=== PATIENT | male | born 1980 | race Caucasian/White ===

== ENCOUNTER 2019-12-23 14:25 | Outpatient (REF) | payer OTHER, SELFPAY ==
[2019-12-23 16:40] LABS: MANUAL DIFF FLAG NO
[2019-12-23 16:46] LABS: Basophils Percent Auto 0.4 % (0-2); Eosinophils Absolute Auto 0.1 X10*3/uL (0.0-0.4); Eosinophils Percent Auto 1.6 % (0-4); Hematocrit 49.6 % (42-52); Hemoglobin 16.7 g/dl (14.0-18.0); Imm Gran Abs Auto 0.02 X10*3/uL (0.00-0.03); Imm Gran Pct Auto 0.3 % (0.0-0.4); Lymphocytes Absolute Auto 2.8 X10*3/uL (1.2-4.9); Lymphocytes Percent Auto 37.2 % (20-40); Mean Corpuscular HGB Conc 33.7 g/dl (31.0-36.0); Mean Corpuscular Hemoglobin 31.2 pg (27.0-33.0); Mean Corpuscular Volume 92.7 fL (80-98); Mean Platelet Volume 10.1 fL (9.4-12.4); Monocytes Absolute Auto 0.7 X10*3/uL (0.1-1.2); Monocytes Percent Auto 8.9 % (2-11); Neutrophils Absolute Auto 3.9 X10*3/uL (2.0-8.3); Neutrophils Percent Auto 51.6 % (45-73); Platelet Count 289 X10*3/uL (160-400); Red Blood Count 5.35 X10*6/uL (4.60-5.80); Red Cell Distribution Width 12.6 % (11.0-16.0); White Blood Count 7.5 X10*3/uL (4.8-10.8)
[2019-12-23 17:15] LABS: Alanine Aminotransferase 33 U/L (0-40); Albumin Level 4.5 g/dL (3.5-5.0); Alkaline Phosphatase 57 U/L (39-117); Anion Gap 13 (12-20); Aspartate Amino Transferase 24 U/L (5-37); Bilirubin Total 2.4 mg/dL (0.0-1.0); Blood Urea Nitrogen 13 mg/dL (9-16); Calcium 9.1 mg/dL (8.4-10.2); Carbon Dioxide 28 mmol/L (22-29); Chloride 100 mmol/L (96-108); Cholesterol 211 mg/dL; Estimated Glomerular Filt Rate > 60; Glucose Fasting 83 mg/dL (60-99); HDL Cholesterol 45 mg/dL; LDL Cholesterol Calculated 149 mg/dl; Potassium 4.4 mmol/l (3.3-5.1); Sodium 137 mmol/L (135-145); Total Protein 7.6 g/dL (6.5-8.0); Triglycerides 85 mg/dL
== END 2019-12-23 14:26 | disposition home or self-care (01) ==
LOC: HO.HMGCLDS 14:25
PROVIDERS: PCP Internal Medicine; Visit Provider Internal Medicine
DX: Z00.00 Encounter for general adult medical examination without abnormal findings (principal); R07.9 Chest pain, unspecified
CPT/HCPCS: 36415; 80053; 80061; 85025

== ENCOUNTER → 2020-02-26 08:20 | Outpatient (BNVA) | payer OTHER, SELFPAY | PROVIDERS: PCP Internal Medicine; Visit Provider Internal Medicine Gastroenterology | DX: Z76.89 Persons encountering health services in other specified circumstances (principal) ==

== ENCOUNTER 2020-03-02 07:55 | Outpatient (REF) | payer OTHER, SELFPAY ==
[2020-03-02 12:14] LABS: Vitamin B12 458 pg/mL (200-900)
[2020-03-03 21:17] LABS: Immunoglobulin A 269 mg/dL (47-310)
[2020-03-04 21:12] LABS: Transglutaminase Ab IgG 2 U/mL; Transglutaminase IgA 1 U/mL
== END 2020-03-02 07:56 | disposition home or self-care (01) ==
LOC: HO.HMGCLDS 07:55
PROVIDERS: PCP Internal Medicine; Visit Provider Internal Medicine Gastroenterology
DX: R14.0 Abdominal distension (gaseous) (principal)
CPT/HCPCS: 36415; 82607; 82746; 82784; 83516

== ENCOUNTER 2020-03-08 10:25 | Outpatient (REF) | payer OTHER, SELFPAY | END 2020-03-08 10:26 | disposition home or self-care (01) | LOC: HO.HMGCLNP 10:25 | PROVIDERS: Visit Provider Internal Medicine Gastroenterology | DX: R14.0 Abdominal distension (gaseous) (principal) | CPT/HCPCS: 87338 ==

== ENCOUNTER → 2020-04-30 07:47 | Outpatient (REF) | payer OTHER, SELFPAY ==
--- NOTE | ~2020-04-30 | NM_ITS ---
EXAMINATION: RADIONUCLIDE SOLID FOOD GASTRIC EMPTYING 4-HOUR STUDY CLINICAL INFORMATION: Abdominal distention (gaseous) COMPARISON: No previous gastric emptying study is available for comparison. TECHNIQUE: A standard meal consisting of 4 oz of Egg Beaters brand tagged with 1 mCi Tc-99m Sulfur Colloid, 8 oz water and 2 slices of toast with jelly was administered orally to the patient. Images were obtained using a dual head gamma camera in the anterior and posterior projections over of the stomach immediately post ingestion and at hourly intervals up to 3 hours post ingestion. Images were not obtained at 4 hours due to the minimal retention at 3 hours. The anterior and posterior counts at each time interval were averaged using the geometric mean and expressed as percentage of the immediate post ingestion counts. FINDINGS: There is good visualization of activity in the stomach immediately post ingestion. As the study progresses, there is good clearance of activity from the stomach and visualization of progressively increasing small bowel activity. By the end of the study, there is almost no retention noted in the stomach. Retention in the stomach at each time interval was: 1 hour 70% (normal 37%-90%) 2 hours 7% (normal 30%-60%) 3 hours 2% 4 hours (Not Obtained) (normal 0%-10%) NM/NM gastric emptying study IMPRESSION: Normal solid food gastric emptying study.
== END ==
LOC: HO.NUCMED 07:47
PROVIDERS: Visit Provider Internal Medicine Gastroenterology
DX: R14.0 Abdominal distension (gaseous) (principal)
CPT/HCPCS: 78264; A9541

== ENCOUNTER → 2020-06-04 11:24 | Outpatient (BNVA) | payer OTHER, SELFPAY | PROVIDERS: Visit Provider Internal Medicine Gastroenterology ==

== ENCOUNTER 2021-01-13 13:05 | Outpatient (REF) | payer OTHER, SELFPAY ==
--- NOTE | ~2021-01-13 | XR_ITS ---
EXAMINATION: XR SHOULDER, LEFT CLINICAL INFORMATION: Left shoulder pain. COMPARISON: None TECHNIQUE: AP external rotation, Grashey, scapular Y, and axillary views of the left shoulder. FINDINGS: The bones and soft tissues are normal. No fracture. Glenohumeral and acromioclavicular alignment is anatomic with normal joint space. No abnormal soft tissue calcifications. XR/XR shoulder LT min 2V IMPRESSION: Normal left shoulder.
== END 2021-01-13 13:06 | disposition home or self-care (01) ==
LOC: HO.HMGCX 13:05
PROVIDERS: PCP Internal Medicine; Visit Provider Internal Medicine
DX: M25.512 Pain in left shoulder (principal); R42 Dizziness and giddiness
CPT/HCPCS: 73030

== ENCOUNTER 2021-03-09 07:59 | Outpatient (REF) | payer OTHER, SELFPAY ==
[2021-03-09 11:52] LABS: MANUAL DIFF FLAG NO
[2021-03-09 11:57] LABS: Basophils Percent Auto 0.2 % (0-2); Eosinophils Absolute Auto 0.2 X10*3/uL (0.0-0.4); Eosinophils Percent Auto 1.8 % (0-4); Hematocrit 49.3 % (42.0-52.0); Hemoglobin 16.9 g/dl (14.0-18.0); Imm Gran Abs Auto 0.02 X10*3/uL (0.00-0.03); Imm Gran Pct Auto 0.2 % (0.0-0.4); Lymphocytes Absolute Auto 2.6 X10*3/uL (1.2-4.9); Lymphocytes Percent Auto 30.6 % (20-40); Mean Corpuscular HGB Conc 34.3 g/dl (31.0-36.0); Mean Corpuscular Hemoglobin 31.7 pg (27.0-33.0); Mean Corpuscular Volume 92.5 fL (80.0-98.0); Mean Platelet Volume 10.1 fL (9.4-12.4); Monocytes Absolute Auto 0.7 X10*3/uL (0.1-1.2); Monocytes Percent Auto 8.2 % (2-11); Neutrophils Absolute Auto 4.9 x10*3/uL (2.0-8.3); Platelet Count 313 X10*3/uL (160-400); Red Blood Count 5.33 X10*6/uL (4.60-5.80); Red Cell Distribution Width 12.2 % (11.0-16.0); White Blood Count 8.4 X10*3/uL (4.8-10.8)
[2021-03-09 12:22] LABS: Alanine Aminotransferase 46 U/L (0-40); Albumin Level 4.5 g/dL (3.5-5.0); Alkaline Phosphatase 59 U/L (39-117); Anion Gap 16 (12-20); Aspartate Amino Transferase 25 U/L (5-37); Bilirubin Total 2.3 mg/dL (0.0-1.0); Blood Urea Nitrogen 21 mg/dL (9-16); Calcium 9.7 mg/dL (8.4-10.2); Carbon Dioxide 26 mmol/L (22-29); Chloride 103 mmol/L (96-108); Cholesterol 220 mg/dL; Estimated Glomerular Filt Rate > 60; Glucose Fasting 71 mg/dL (60-99); HDL Cholesterol 41 mg/dL; LDL Cholesterol Calculated 161 mg/dl; Potassium 4.6 mmol/L (3.3-5.1); Sodium 140 mmol/L (135-145); Total Protein 7.6 g/dL (6.5-8.0); Triglycerides 90 mg/dL
== END 2021-03-09 08:00 | disposition home or self-care (01) ==
LOC: HO.HMGCLDS 07:59
PROVIDERS: PCP Internal Medicine; Visit Provider Internal Medicine
DX: Z00.00 Encounter for general adult medical examination without abnormal findings (principal)
CPT/HCPCS: 36415; 80053; 80061; 85025

== ENCOUNTER 2021-06-03 07:59 | Outpatient (REF) | payer OTHER, SELFPAY ==
[2021-06-03 12:03] LABS: Cholesterol 191 mg/dL; HDL Cholesterol 43 mg/dL; LDL Cholesterol Calculated 139 mg/dl; Triglycerides 49 mg/dL
== END 2021-06-03 08:00 | disposition home or self-care (01) ==
LOC: HO.HMGCLDS 07:59
PROVIDERS: PCP Internal Medicine; Visit Provider Internal Medicine
DX: Z00.00 Encounter for general adult medical examination without abnormal findings (principal); E78.5 Hyperlipidemia, unspecified
CPT/HCPCS: 36415; 80061

== ENCOUNTER 2021-06-06 15:51 | Outpatient (REF) | payer OTHER, SELFPAY ==
--- NOTE | 2021-06-06 17:38 | PFT_ITS ---
FLOWS: FEV1 84% of predicted at 3.35 L. FVC 89% of predicted at 4.45 L. FEV1 to FVC ratio of 0.75. No bronchodilator response. LUNG VOLUMES: Total lung capacity 92% of predicted at 6.01 L. Residual volume 99% of predicted at 1.69 L. Slow vital capacity 89% of predicted at 4.32 L. Expiratory reserve volume 59% of predicted at 0.90 L. Diffusion capacity is normal. IMPRESSION: No obstructive or restrictive ventilatory defect. No bronchodilator response. Essentially normal pulmonary function test. Jose Maxwell MD AP/MODL / [id number]
== END 2021-06-06 15:52 | disposition home or self-care (01) ==
LOC: HO.RESP 15:51
PROVIDERS: PCP Internal Medicine; Visit Provider Internal Medicine
DX: R06.02 Shortness of breath (principal)
CPT/HCPCS: 94060; 94727; 94729

== ENCOUNTER 2021-08-10 08:24 | Outpatient (REF) | payer OTHER, SELFPAY ==
--- NOTE | ~2021-08-10 | XR_ITS ---
EXAMINATION: XR RIBS, LEFT CLINICAL INFORMATION: Front wall of the thorax contusion. COMPARISON: 05/08/2019 chest radiographs. TECHNIQUE: 3 views of the left ribs were obtained along with a PA view of the chest. A skin marker was placed overlying the left lateral ribs. FINDINGS: Lungs are clear. No consolidation, pneumothorax, or pleural effusion. The cardiomediastinal silhouette and pulmonary vasculature are normal. Osseous structures are unremarkable. Ribs are intact. No fractures are identified. XR/XR ribs LT min 3V w CXR1V IMPRESSION: Unremarkable examination.
== END 2021-08-10 08:25 | disposition home or self-care (01) ==
LOC: HO.HMGCX 08:24
PROVIDERS: PCP Internal Medicine; Visit Provider Internal Medicine
DX: S20.219A Contusion of unspecified front wall of thorax, initial encounter (principal)
CPT/HCPCS: 71101

== ENCOUNTER 2021-09-19 15:25 | Outpatient (REF) | payer OTHER, SELFPAY ==
--- NOTE | ~2021-09-19 | US_ITS ---
EXAMINATION: US CHEST CLINICAL INFORMATION: Palpable lump/fullness in the rib. COMPARISON: Chest x-ray 08/10/2021. TECHNIQUE: Limited imaging to the left lateral chest below the breast was performed. FINDINGS: Limited imaging to the left anterior chest wall in the palpable area or prominence reveals no soft tissue mass or fluid collection or mass effect. However, there is moderate echogenic prominent area, likely bony prominence contiguous to the rib. This is more apparent when compared to the right side. Chest x-ray and the left rib series reveal a lytic lesion seventh anterior rib. US/US chest IMPRESSION: Echogenic area in the left anterior chest wall underneath the breast corresponds to a bony prominence. On chest x-ray from 08/10/2021, there appears to be a lytic lesion arising from left anterior seventh rib question intraosseous cyst. Recommend correlation with CT chest.
== END 2021-09-19 15:26 | disposition home or self-care (01) ==
LOC: HO.HMGCX 15:25
PROVIDERS: Visit Provider Internal Medicine
DX: R22.2 Localized swelling, mass and lump, trunk (principal)
CPT/HCPCS: 76604

== ENCOUNTER 2021-10-12 09:03 | Outpatient (REF) | payer OTHER, SELFPAY ==
--- NOTE | ~2021-10-12 | CT_ITS ---
EXAMINATION: CT CHEST WITHOUT CONTRAST CLINICAL INFORMATION: Acquired deformity of chest. COMPARISON: Chest x-ray 08/10/2021. TECHNIQUE: Multidetector volumetric CT imaging of the chest was done. Axial MIP volume rendering provided. Sagittal and coronal reformatted images were obtained. This CT examination was performed using dose optimization techniques as appropriate, variously including the following: *Automated exposure control *Adjustment of mA and/or kV according to patient size (this includes techniques or standardized protocols for targeted exams where dose is matched to indication/reason for exam; i.e. 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 LUNGS: The lungs are well expanded and clear of acute pneumonic consolidation. No pulmonary nodule, mass or ground-glass density seen. MEDIASTINUM: The thyroid lobes are normal and symmetrical. The central trachea and the bronchi are widely patent. The heart size and great vessels are normal caliber. There are no abnormal mediastinal lymph nodes or masses. No pericardial effusion. PLEURA: There are small shotty lymph nodes in bilateral axilla. The chest wall is unremarkable. AXILLA: No lymphadenopathy. UPPER ABDOMEN: Visualized liver, spleen, pancreas and bilateral adrenal glands unremarkable. OSSEOUS STRUCTURES: No aggressive lytic or sclerotic process seen. CT/CT chest wo con IMPRESSION: No acute cardiopulmonary process seen. Fleischner guidelines were followed.
== END 2021-10-12 09:04 | disposition home or self-care (01) ==
LOC: HO.CT 09:03
PROVIDERS: PCP Internal Medicine; Visit Provider Internal Medicine
DX: M95.4 Acquired deformity of chest and rib (principal)
CPT/HCPCS: 71250

== ENCOUNTER 2021-10-14 07:32 | Outpatient (REF) | payer OTHER, SELFPAY ==
[2021-10-14 11:28] LABS: MANUAL DIFF FLAG NO
[2021-10-14 11:38] LABS: Basophils Percent Auto 0.6 % (0-2); Eosinophils Absolute Auto 0.3 X10*3/uL (0.0-0.4); Eosinophils Percent Auto 4.5 % (0-4); Hematocrit 47.5 % (42.0-52.0); Hemoglobin 16.2 g/dl (14.0-18.0); Imm Gran Abs Auto 0.02 X10*3/uL (0.00-0.03); Imm Gran Pct Auto 0.3 % (0.0-0.4); Lymphocytes Absolute Auto 2.6 X10*3/uL (1.2-4.9); Mean Corpuscular HGB Conc 34.1 g/dl (31.0-36.0); Mean Corpuscular Hemoglobin 31.3 pg (27.0-33.0); Mean Corpuscular Volume 91.9 fL (80.0-98.0); Mean Platelet Volume 10.3 fL (9.4-12.4); Monocytes Absolute Auto 0.6 X10*3/uL (0.1-1.2); Monocytes Percent Auto 9.2 % (2-11); Neutrophils Absolute Auto 2.9 x10*3/uL (2.0-8.3); Neutrophils Percent Auto 45.4 % (45-73); Platelet Count 281 X10*3/uL (160-400); Red Blood Count 5.17 X10*6/uL (4.60-5.80); Red Cell Distribution Width 12.8 % (11.0-16.0); White Blood Count 6.4 X10*3/uL (4.8-10.8)
[2021-10-14 11:47] LABS: Alanine Aminotransferase 38 U/L (0-40); Albumin Level 4.4 g/dL (3.5-5.0); Alkaline Phosphatase 64 U/L (39-117); Anion Gap 15 (12-20); Aspartate Amino Transferase 25 U/L (5-37); Bilirubin Total 1.2 mg/dL (0.0-1.0); Blood Urea Nitrogen 18 mg/dL (9-16); Calcium 9.5 mg/dL (8.4-10.2); Carbon Dioxide 27 mmol/L (22-29); Chloride 103 mmol/L (96-108); Cholesterol 214 mg/dL; Estimated Glomerular Filt Rate > 60; Glucose Fasting 93 mg/dL (60-99); HDL Cholesterol 51 mg/dL; Iron 87 mcg/dL (45-160); LDL Cholesterol Calculated 151 mg/dl; Percent Iron Saturation 22 % (15-50); Potassium 4.6 mmol/L (3.3-5.1); Sodium 140 mmol/L (135-145); Total Iron Binding Capacity 387 mcg/dL (228-428); Total Protein 7.4 g/dL (6.5-8.0); Triglycerides 61 mg/dL; Unsaturated Iron Binding 300 ug/dL
[2021-10-20 21:02] LABS: Testosterone, Free 69.8 pg/mL (35.0-155.0); Testosterone, Total 316 ng/dL (250-1100)
[2021-10-22 20:07] LABS: Cortisol, Free 0.24 mcg/dL
== END 2021-10-14 07:33 | disposition home or self-care (01) ==
LOC: HO.HMGCLDS 07:32
PROVIDERS: PCP Internal Medicine; Visit Provider Internal Medicine
DX: Z00.00 Encounter for general adult medical examination without abnormal findings (principal); R53.83 Other fatigue; J45.909 Unspecified asthma, uncomplicated
CPT/HCPCS: 36415; 80053; 80061; 82530; 83540; 84402; 84403; 84443; 85025

== ENCOUNTER → 2021-10-28 10:43 | Outpatient (BNVA) | payer OTHER, SELFPAY | PROVIDERS: PCP Internal Medicine; Visit Provider Surgery | DX: M94.0 Chondrocostal junction syndrome [Tietze] (principal) | CPT/HCPCS: 99202 ==

== ENCOUNTER 2022-03-16 07:35 | Outpatient (REF) | payer OTHER, SELFPAY ==
[2022-03-16 11:17] LABS: MANUAL DIFF FLAG NO
[2022-03-16 11:18] LABS: Appearance Urine Turbid; Color Urine Dark Yellow; Glucose Urine UA Negative (Negative); Leukocyte Esterase Urine Negative (Negative); Nitrite Urine Negative (Negative); PH 5.5 (5.0-9.0); Specific Gravity - Urine >= 1.030 (1.005-1.025); Urine Blood Negative (Negative); Urine Ketones 15 mg/dL (Negative); Urine Protein Negative (Neg-Trace)
[2022-03-16 11:21] LABS: Bacteria Urine None Seen (None Seen); Hyaline Casts Urine 0-2 /LPF (0-2); RBC Urine 0-2 /HPF (0-2); Squamous Epithelial Cell Urine 0-2 /HPF (0-2); WBC Urine 0-5 /HPF (0-5)
[2022-03-16 11:28] LABS: Basophils Percent Auto 0.6 % (0-2); Eosinophils Absolute Auto 0.2 X10*3/uL (0.0-0.4); Eosinophils Percent Auto 3.2 % (0-4); Hematocrit 53.1 % (42.0-52.0); Imm Gran Abs Auto 0.01 X10*3/uL (0.00-0.03); Imm Gran Pct Auto 0.2 % (0.0-0.4); Lymphocytes Absolute Auto 2.1 X10*3/uL (1.2-4.9); Lymphocytes Percent Auto 39.8 % (20-40); Mean Corpuscular HGB Conc 33.9 g/dl (31.0-36.0); Mean Corpuscular Hemoglobin 30.7 pg (27.0-33.0); Mean Corpuscular Volume 90.6 fL (80.0-98.0); Mean Platelet Volume 10.2 fL (9.4-12.4); Monocytes Absolute Auto 0.6 X10*3/uL (0.1-1.2); Monocytes Percent Auto 11.6 % (2-11); Neutrophils Absolute Auto 2.3 x10*3/uL (2.0-8.3); Neutrophils Percent Auto 44.6 % (45-73); Platelet Count 260 X10*3/uL (160-400); Red Blood Count 5.86 X10*6/uL (4.60-5.80); Red Cell Distribution Width 13.6 % (11.0-16.0); White Blood Count 5.3 X10*3/uL (4.8-10.8)
[2022-03-16 11:49] LABS: Alanine Aminotransferase 25 U/L (0-40); Albumin Level 4.3 g/dL (3.5-5.0); Alkaline Phosphatase 54 U/L (39-117); Anion Gap 9 (12-20); Aspartate Amino Transferase 23 U/L (5-37); Bilirubin Total 1.5 mg/dL (0.0-1.0); Blood Urea Nitrogen 18 mg/dL (9-16); Calcium 9.4 mg/dL (8.4-10.2); Carbon Dioxide 29 mmol/L (22-29); Chloride 104 mmol/L (96-108); Cholesterol 151 mg/dL; Estimated Glomerular Filt Rate > 60; Glucose Fasting 81 mg/dL (60-99); HDL Cholesterol 32 mg/dL; LDL Cholesterol Calculated 108 mg/dl; Potassium 4.2 mmol/L (3.3-5.1); Sodium 138 mmol/L (135-145); Total Protein 7.2 g/dL (6.5-8.0); Triglycerides 56 mg/dL
[2022-03-16 12:05] LABS: TSH reflex Free T4 1.11 uIU/mL (0.32-4.0)
== END 2022-03-16 07:36 | disposition home or self-care (01) ==
LOC: HO.HMGCLDS 07:35
PROVIDERS: PCP Internal Medicine; Visit Provider Internal Medicine
DX: Z00.00 Encounter for general adult medical examination without abnormal findings (principal); E78.5 Hyperlipidemia, unspecified
CPT/HCPCS: 36415; 80053; 80061; 81001; 84443; 85025

== ENCOUNTER 2022-06-26 15:52 | Outpatient (REF) | payer OTHER, SELFPAY ==
--- NOTE | ~2022-06-26 | XR_ITS ---
EXAMINATION: XR FOOT, RIGHT CLINICAL INFORMATION: Pain. COMPARISON: None available. TECHNIQUE: AP, lateral, and oblique views of the right foot. FINDINGS: There is no visible acute fracture, dislocation or subluxation. The ankle mortise and subtalar joints are normal. There is a small calcaneal heel enthesophyte. No visible acute fracture, dislocation or subluxation seen. The soft tissues are normal. XR/XR foot RT min 3V IMPRESSION: Small calcaneal heel enthesophyte. No visible acute fracture, dislocation or subluxation seen.
== END 2022-06-26 15:53 | disposition home or self-care (01) ==
LOC: HO.HMGCX 15:52
PROVIDERS: PCP Internal Medicine; Visit Provider Nurse Practitioner Family
DX: M25.471 Effusion, right ankle (principal)
CPT/HCPCS: 73630

== ENCOUNTER 2022-06-27 06:04 | Outpatient (REF) | payer OTHER, SELFPAY ==
[2022-06-27 11:14] LABS: MANUAL DIFF FLAG NO
[2022-06-27 11:35] LABS: Basophils Absolute Auto 0.1 X10*3/uL (0.0-0.2); Basophils Percent Auto 0.8 % (0-2); Eosinophils Absolute Auto 0.2 X10*3/uL (0.0-0.4); Eosinophils Percent Auto 2.6 % (0-4); Hemoglobin 18.5 g/dl (14.0-18.0); Imm Gran Abs Auto 0.02 X10*3/uL (0.00-0.03); Imm Gran Pct Auto 0.3 % (0.0-0.4); Lymphocytes Absolute Auto 2.7 X10*3/uL (1.2-4.9); Lymphocytes Percent Auto 34.4 % (20-40); Mean Corpuscular HGB Conc 33.2 g/dl (31.0-36.0); Mean Corpuscular Hemoglobin 30.9 pg (27.0-33.0); Mean Corpuscular Volume 93.3 fL (80.0-98.0); Monocytes Absolute Auto 0.7 X10*3/uL (0.1-1.2); Monocytes Percent Auto 8.7 % (2-11); Neutrophils Absolute Auto 4.2 x10*3/uL (2.0-8.3); Neutrophils Percent Auto 53.2 % (45-73); Platelet Count 249 X10*3/uL (160-400); Red Blood Count 5.98 X10*6/uL (4.60-5.80); Red Cell Distribution Width 13.2 % (11.0-16.0); White Blood Count 7.8 X10*3/uL (4.8-10.8)
[2022-06-27 11:36] LABS: Hematocrit 55.8 % (42.0-52.0)
[2022-06-27 12:11] LABS: Anion Gap 9 (12-20); Blood Urea Nitrogen 14 mg/dL (9-16); Calcium 9.3 mg/dL (8.4-10.2); Carbon Dioxide 33 mmol/L (22-29); Chloride 104 mmol/L (96-108); Estimated Glomerular Filt Rate > 60; Glucose Random 92 mg/dL (60-115); Potassium 4.4 mmol/L (3.3-5.1); Sodium 142 mmol/L (135-145); Uric Acid 4.8 mg/dL (3.4-7.0)
== END 2022-06-27 06:05 | disposition home or self-care (01) ==
LOC: HO.HMGCLDS 06:04
PROVIDERS: PCP Internal Medicine; Visit Provider Nurse Practitioner Family
DX: M25.476 Effusion, unspecified foot (principal)
CPT/HCPCS: 36415; 80048; 84550; 85025

== ENCOUNTER 2022-07-17 08:21 | Outpatient (REF) | payer OTHER, SELFPAY ==
[2022-07-17 11:30] LABS: MANUAL DIFF FLAG NO
[2022-07-17 11:50] LABS: Basophils Percent Auto 0.8 % (0-2); Eosinophils Absolute Auto 0.2 X10*3/uL (0.0-0.4); Eosinophils Percent Auto 3.2 % (0-4); Hematocrit 48.2 % (42.0-52.0); Hemoglobin 16.7 g/dl (14.0-18.0); Imm Gran Abs Auto 0.01 X10*3/uL (0.00-0.03); Imm Gran Pct Auto 0.2 % (0.0-0.4); Lymphocytes Absolute Auto 2.1 X10*3/uL (1.2-4.9); Lymphocytes Percent Auto 38.9 % (20-40); Mean Corpuscular HGB Conc 34.6 g/dl (31.0-36.0); Mean Corpuscular Hemoglobin 31.6 pg (27.0-33.0); Mean Corpuscular Volume 91.3 fL (80.0-98.0); Mean Platelet Volume 9.8 fL (9.4-12.4); Monocytes Absolute Auto 0.5 X10*3/uL (0.1-1.2); Monocytes Percent Auto 8.5 % (2-11); Neutrophils Absolute Auto 2.6 x10*3/uL (2.0-8.3); Neutrophils Percent Auto 48.4 % (45-73); Platelet Count 258 X10*3/uL (160-400); Red Blood Count 5.28 X10*6/uL (4.60-5.80); Red Cell Distribution Width 12.8 % (11.0-16.0); White Blood Count 5.3 X10*3/uL (4.8-10.8)
[2022-07-17 12:09] LABS: Iron 116 mcg/dL (45-160); Percent Iron Saturation 34 % (15-50); Total Iron Binding Capacity 344 mcg/dL (228-428); Unsaturated Iron Binding 228 ug/dL
[2022-07-23 14:12] LABS: Testosterone, Free 71.8 pg/mL (35.0-155.0); Testosterone, Total 275 ng/dL (250-1100)
[2022-07-28 23:50] LABS: Cortisol, Free 0.24 mcg/dL
== END 2022-07-17 08:22 | disposition home or self-care (01) ==
LOC: HO.HMGCLDS 08:21
PROVIDERS: PCP Internal Medicine; Visit Provider Internal Medicine
DX: D75.1 Secondary polycythemia (principal)
CPT/HCPCS: 36415; 81219; 81270; 81279; 81339; 82530; 83540; 84402; 84403; 85025

== ENCOUNTER 2022-09-18 08:21 | Outpatient (AMB) | payer OTHER, SELFPAY ==
--- NOTE | 2022-09-18 08:22 | A.OFFPC_ITS ---
Vital Signs 09/18/22 08:23 Height 5 ft 8 in Weight 194 lb BMI 29.5 BP 120/74 Blood Pressure Location Lt brachial Position Sitting Pulse 85 Pulse Source Pulse Oximeter Pulse Oximetry (%) 95 Oxygen Delivery Method Room Air Intake Visit Reasons: 6 month follow up Intake Note: Pt is here today for his 6 months f/u Allergies No Known Allergies Allergy (Verified 06/26/22 15:19) Medication List - Last Reconciled 09/18/22 by Merlyn Beauchamp MD multivitamin 1 tab PO DAILY Tobacco use date assessed: 09/18/22 Dental Screening Dental Screen Date: 09/18/22 Did you have a dental visit in the last 12 months?: Yes Did you have a dental problem in the last 6 months where you did not have access to dental care?: No Was dental information given to patient?: Patient has dentist HPI 6 month follow up HPI Details Pt presents for f/u paroxysmal A fib last episode in 07/18. Pt follows up with Cardiology at [facility] and will have catheter ablation scheduled. His daughter was diagnosed with acute leukemia and is undergoing the treatment [facility] Medical History Annual physical exam Anxiety Asthma Chest pain Shoulder pain, left Vertigo Surgical History No significant past surgical history Family History Father Hx of type 2 diabetes mellitus Mother Hx of breast cancer Hx of heat stroke Sister Multiple sclerosis Other Mental health disorder Substance use disorder Social History Household Members: Spouse and Children Housing: House Alcohol intake: never Patient Tobacco Use Status: Never used Tobacco e-Cigarette/Vaping Use: Never Used Second Hand Smoke Exposure: No Current occupational status: employed Cognitive needs: No Hearing needs: No Vision needs: No Questionnaire Thrive Questionnaire Date Thrive assessed: 03/21/22 FLACA-7 AMB Questionnaire FLACA-7 Date FLACA - 7 assessed: 03/21/22 Source: Developed by Drs. Bobby Flores, Tomeka Joshua, Spike Mason and colleagues, with an educational zach from [employer]. Review of Systems Const All systems reviewed & are unremarkable except as noted in HPI and below Reports no additional complaints Eyes Reports no additional complaints ENT Reports no additional complaints Card Reports no additional complaints Resp Reports no additional complaints GI Reports no additional complaints Reports no additional complaints Physical exam (Primary Care) Vital Signs: Last Vital Signs Pulse 85 09/18/22 08:23 BP 120/74 09/18/22 08:23 Pulse Ox 95 09/18/22 08:23 Oxygen Delivery Method Room Air 09/18/22 08:23 BMI result Body Mass Index 29.5 Tobacco/Smoking Status: Tobacco use Status Tobacco use date assessed 09/18/22 09/18/22 08:28 Patient Tobacco Use Status Never used Tobacco 09/18/22 08:28 e-Cigarette/Vaping Use Never Used 09/18/22 08:28 Thrive Assessment: Date of Thrive Assessment Date Thrive assessed 03/21/22 09/18/22 08:28 Const General: no acute distress HENMT Ears: hearing grossly normal bilaterally Throat: Yes posterior oropharynx normal Resp Effort & Inspection: normal respiratory effort Auscultation: clear to auscultation bilaterally Cardio Rhythm: regular rhythm Heart sounds: S1 normal heart sound present and S2 normal heart sound present Assessment and Plan Assessment & Plan (1) Hyperlipemia: Code(s): E78.5 - Hyperlipidemia, unspecified Plan: Continue low-cholesterol diet check lipid profile today (2) Annual physical exam: Code(s): Z00.00 - Encounter for general adult medical examination without abnormal findings Plan: Well-balanced diet regular exercise discussed with the patient. he will return for physical in 6 months Orders: Orders Testosterone, Free/Total Today E78.5 - Hyperlipidemia, unspecified, Z00.00 - Encounter for general adult medical examination without abnormal findings Comprehensive Met. Panel Today E78.5 - Hyperlipidemia, unspecified, Z00.00 - Encounter for general adult medical examination without abnormal findings Lipid Panel Today E78.5 - Hyperlipidemia, unspecified, Z00.00 - Encounter for general adult medical examination without abnormal findings Complete Blood Count Auto Diff Today E78.5 - Hyperlipidemia, unspecified, Z00.00 - Encounter for general adult medical examination without abnormal findings Coding Level of Care Code Est Pt Level 3 (27699) Diagnoses Hyperlipemia E78.5 Annual physical exam Z00.00
[2022-09-18 08:23] VITALS: BP 120/74; PULSE 85; O2SAT 95; BMI 29.5
== END 2022-09-18 08:56 | disposition home or self-care (01) ==
PROVIDERS: PCP Internal Medicine; Visit Provider Internal Medicine
DX: E78.5 Hyperlipidemia, unspecified (principal); Z00.00 Encounter for general adult medical examination without abnormal findings
CPT/HCPCS: 99213

== ENCOUNTER 2022-09-18 08:53 | Outpatient (REF) | payer OTHER, SELFPAY ==
[2022-09-18 11:32] LABS: MANUAL DIFF FLAG NO
[2022-09-18 11:42] LABS: Basophils Absolute Auto 0.1 X10*3/uL (0.0-0.2); Basophils Percent Auto 0.7 % (0-2); Eosinophils Absolute Auto 0.5 X10*3/uL (0.0-0.4); Hematocrit 53.8 % (42.0-52.0); Imm Gran Abs Auto 0.01 X10*3/uL (0.00-0.03); Imm Gran Pct Auto 0.1 % (0.0-0.4); Lymphocytes Absolute Auto 2.3 X10*3/uL (1.2-4.9); Lymphocytes Percent Auto 31.6 % (20-40); Mean Corpuscular HGB Conc 33.5 g/dl (31.0-36.0); Mean Corpuscular Hemoglobin 31.3 pg (27.0-33.0); Mean Corpuscular Volume 93.6 fL (80.0-98.0); Monocytes Absolute Auto 0.5 X10*3/uL (0.1-1.2); Monocytes Percent Auto 7.2 % (2-11); Neutrophils Percent Auto 53.4 % (45-73); Platelet Count 253 X10*3/uL (160-400); Red Blood Count 5.75 X10*6/uL (4.60-5.80); Red Cell Distribution Width 13.5 % (11.0-16.0); White Blood Count 7.4 X10*3/uL (4.8-10.8)
[2022-09-18 12:47] LABS: Alanine Aminotransferase 21 U/L (0-40); Albumin Level 4.2 g/dL (3.5-5.0); Alkaline Phosphatase 64 U/L (39-117); Anion Gap 11 (12-20); Aspartate Amino Transferase 19 U/L (5-37); Bilirubin Total 1.1 mg/dL (0.0-1.0); Blood Urea Nitrogen 16 mg/dL (9-16); Calcium 9.6 mg/dL (8.4-10.2); Carbon Dioxide 29 mmol/L (22-29); Chloride 103 mmol/L (96-108); Cholesterol 172 mg/dL; Estimated Glomerular Filt Rate > 60; Glucose Random 90 mg/dL (60-115); HDL Cholesterol 41 mg/dL; LDL Cholesterol Calculated 123 mg/dl; Potassium 4.4 mmol/L (3.3-5.1); Sodium 139 mmol/L (135-145); Total Protein 7.5 g/dL (6.5-8.0); Triglycerides 42 mg/dL
[2022-09-22 16:33] LABS: Testosterone, Free 368.2 pg/mL (35.0-155.0); Testosterone, Total 1169 ng/dL (250-1100)
== END 2022-09-18 08:54 | disposition home or self-care (01) ==
LOC: HO.HMGCLDS 08:53
PROVIDERS: PCP Internal Medicine; Visit Provider Internal Medicine
DX: Z00.00 Encounter for general adult medical examination without abnormal findings (principal); E78.5 Hyperlipidemia, unspecified
CPT/HCPCS: 36415; 80053; 80061; 84402; 84403; 85025

== ENCOUNTER 2023-03-09 11:42 | Outpatient (AMB) | payer OTHER, SELFPAY ==
--- NOTE | 2023-03-09 11:48 | A.OFFPC_ITS ---
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 Accompanied by: Self / Same As Patient Allergies No Known Allergies Allergy (Verified 03/09/23 12:01) Medication List - Last Reconciled 03/09/23 by Merlyn Beauchamp MD flecainide 100 mg PO DAILY metoprolol tartrate 25 mg PO BID multivitamin 1 tab PO DAILY Tobacco use date assessed: 03/09/23 Dental Screening Dental Screen Date: 03/09/23 Did you have a dental visit in the last 12 months?: Yes Did you have a dental problem in the last 6 months where you did not have access to dental care?: No Was dental information given to patient?: Patient has dentist HPI ER visit follow up HPI Details Pt presents for f/u of ER visit for positional vertigo with negative neuro (CTA brain and neck) and cardiac alcantar. Patient is to report symptoms of vertigo and is interested in trying vestibular therapy. 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 Patient has been on testosterone replacement prescribed by a company in [place]. [facility] Medical History Asthma Anxiety Vertigo Shoulder pain, left Chest pain Annual physical exam Surgical History No significant past surgical history Family History Father Hx of type 2 diabetes mellitus Mother Hx of breast cancer Hx of heat stroke Sister Multiple sclerosis Other Mental health disorder Substance use disorder Social History Household Members: Spouse and Children Housing: House Alcohol intake: never Patient Tobacco Use Status: Never used Tobacco e-Cigarette/Vaping Use: Never Used Second Hand Smoke Exposure: No Current occupational status: employed Cognitive needs: No Hearing needs: No Vision needs: No Questionnaire Thrive Questionnaire Date Thrive assessed: 03/21/22 FLACA-7 AMB Questionnaire FLACA-7 Date FLACA - 7 assessed: 03/21/22 Source: Developed by Drs. Bobby Flores, Tomeka Joshua, Spike Mason and colleagues, with an educational zach from [employer]. Review of Systems Const All systems reviewed & are unremarkable except as noted in HPI and below Reports no additional complaints Eyes Reports no additional complaints ENT Reports no additional complaints Card Reports no additional complaints Resp Reports no additional complaints GI Reports no additional complaints Physical exam (Primary Care) Vital Signs: Last Vital Signs Pulse 74 03/09/23 12:00 BP 122/74 03/09/23 12:00 Pulse Ox 96 03/09/23 12:00 BMI result Body Mass Index 31.3 Tobacco/Smoking Status: Tobacco use Status Tobacco use date assessed 03/09/23 03/09/23 12:03 Patient Tobacco Use Status Never used Tobacco 03/09/23 11:48 e-Cigarette/Vaping Use Never Used 03/09/23 11:48 Thrive Assessment: Date of Thrive Assessment Date Thrive assessed 03/21/22 03/09/23 11:48 Const General: no acute distress HENMT Head: Yes normal to inspection Ears: hearing grossly normal bilaterally Face and sinus: Yes normal facial exam Mouth: Normal oral and palatal mucosa present Throat: Yes posterior oropharynx normal Neck Neck: Yes no lymphadenopathy and Yes supple Resp Effort & Inspection: normal respiratory effort Auscultation: clear to auscultation bilaterally Cardio Rhythm: regular rhythm Heart sounds: S1 normal heart sound present and S2 normal heart sound present GI Inspection: Yes normal to inspection Palpation (GI): Soft to palpation Percussion: Yes normal to percussion Assessment and Plan Assessment & Plan (1) Vertigo: Code(s): R42 - Dizziness and giddiness Plan: Referred vestibular therapy (2) High serum testosterone: Comment: f/u by [facility] in [place] Code(s): R79.89 - Other specified abnormal findings of blood chemistry Plan: Patient was advised to decrease the dose of his testosterone replace because of high free testosterone level and a patient at risk for OH due to history of paroxysmal AFib and hyperlipidemia. He follows up for physical in 3 weeks and will obtain a fasting blood work (3) Polycythemia: Comment: Due to testosterone replacement Code(s): D75.1 - Secondary polycythemia (4) Hyperlipemia: Code(s): E78.5 - Hyperlipidemia, unspecified Plan: Continue low-cholesterol diet Orders: Orders Lipid Panel Today D75.1 - Secondary polycythemia, E78.5 - Hyperlipidemia, unspecified, R79.89 - Other specified abnormal findings of blood chemistry Testosterone, Free/Total Today D75.1 - Secondary polycythemia, E78.5 - Hyperlipidemia, unspecified, R79.89 - Other specified abnormal findings of blood chemistry PT Evaluation and Treatment Today R42 - Dizziness and giddiness Comprehensive Zachary. Panel Fast Today D75.1 - Secondary polycythemia, E78.5 - Hyperlipidemia, unspecified, R79.89 - Other specified abnormal findings of blood chemistry Complete Blood Count Auto Diff Today D75.1 - Secondary polycythemia, E78.5 - Hyperlipidemia, unspecified, R79.89 - Other specified abnormal findings of blood chemistry TSH reflex Free T4 Today D75.1 - Secondary polycythemia Medications: New meclizine 25 mg PO BID PRN 20 tabs 0RF dizziness Coding Level of Care Code Est Pt Level 4 (78244) Diagnoses Vertigo R42 High serum testosterone R79.89 Polycythemia D75.1 Hyperlipemia E78.5
[2023-03-09 12:00] VITALS: BP 122/74; PULSE 74; O2SAT 96; BMI 31.3
== END 2023-03-09 13:29 | disposition home or self-care (01) ==
PROVIDERS: PCP Internal Medicine; Visit Provider Internal Medicine
DX: R42 Dizziness and giddiness (principal); R79.89 Other specified abnormal findings of blood chemistry; D75.1 Secondary polycythemia; E78.5 Hyperlipidemia, unspecified
CPT/HCPCS: 99214

== ENCOUNTER 2023-03-15 07:01 | Outpatient (RCR) | payer OTHER, SELFPAY ==
[2023-03-15 07:04] VITALS: BP 138/90; PULSE 96; O2SAT 95
--- NOTE | 2023-03-15 08:17 | MHC.PT.EP ---
[facility] [place] Office [place] Office [place] Office [address] Emeli Marie [address] [phone] F: [phone] F: [phone] F: [phone] F: [phone] Physical Therapy Plan of Care Date of Evaluation: Date of Surgery: Diagnosis: This is a 43 yo male presenting to skilled PT with a script for vertigo, dizziness and giddiness. Assessment: This is a 43 yo male presenting to skilled PT with a script for vertigo, dizziness and giddiness. Patient reporting that about 2 weeks ago while he was sleeping he awoke with extreme dizziness that lasted for about 2 hrs. He was unable to walk, felt nauseous and felt like the room was spinning. Since then he has felt like he has a hangover and needs to be cautious with head movements. He gets nauseous and dizzy still when he attempts to lay supine so he has been avoiding this. He did to go the ER and they did a chest x-ray, CT scan. No medication was given but he did follow up with PCP who prescribed him meclizine (has not picked this up yet). He feels like he can do his normal routine now but is fearful and tends to avoid postures that start to bring on symptoms. Examination shows + oculomotor tests with saccades, normal cervical AROM, normal gait and transfers. After subjective portion of evaluation patient was too nervous to continue with eval and wants to take some time to think on the education given today. Balance was not tested today. S/S sound consistent with BPPV but was not tested due to fear. He is willing to return next week to try again. He would benefit from PT 2x/wk for 4wks to address impairments, implement HEP and optimize functional mobility. 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 Manual therapy to restore motion and function. Therapeutic exercise to improve strength and flexibility. Neuromuscular re-education for posture and balance. Therapeutic activities to return to functional activities of daily living. Electronically signed by: Bekah Tena PT Please sign and return to therapist. Thank you for your referral.
--- NOTE | 2023-04-13 14:06 | MHC.PT.DC ---
[facility] [place] Office [place] Office [place] Office [address] Emeli Marie [address] [phone] F: [phone] F: [phone] F: [phone] F: [phone] Physical Therapy Discharge Report Diagnosis: This is a 43 yo male presenting to skilled PT with a script for vertigo, dizziness and giddiness. Date of Surgery: Date of Evaluation: 03/15/23 Date of Discharge: 04/13/23 Treatments to Date: 1 Cancellations to Date: 1 No Shows to Date: 0 Discharge Status: Patient Elected to Stop Discharge Summary: This is a 43 yo male presenting to skilled PT with a script for vertigo, dizziness and giddiness. Patient reporting that about 2 weeks ago while he was sleeping he awoke with extreme dizziness that lasted for about 2 hrs. He was unable to walk, felt nauseous and felt like the room was spinning. Since then he has felt like he has a hangover and needs to be cautious with head movements. He gets nauseous and dizzy still when he attempts to lay supine so he has been avoiding this. He did to go the ER and they did a chest x-ray, CT scan. No medication was given but he did follow up with PCP who prescribed him meclizine (has not picked this up yet). He feels like he can do his normal routine now but is fearful and tends to avoid postures that start to bring on symptoms. Examination shows + oculomotor tests with saccades, normal cervical AROM, normal gait and transfers. After subjective portion of evaluation patient was too nervous to continue with eval and wants to take some time to think on the education given today. Balance was not tested today. S/S sound consistent with BPPV but was not tested due to fear. He is willing to return next week to try again. He would benefit from PT 2x/wk for 4wks to address impairments, implement HEP and optimize functional mobility. Patient decided to no undergo PT treatments due to fear of inducing symptoms. His chart was closed after 30 days when we did not hear back from him. Electronically signed by: Bekah Tena, PT Please sign and return to therapist. Thank you for your referral.
== END 2023-04-13 14:07 | disposition home or self-care (01) ==
LOC: HO.PTCHIC 07:01
PROVIDERS: PCP Internal Medicine; Visit Provider Internal Medicine
DX: R42 Dizziness and giddiness (principal)
CPT/HCPCS: 97110; 97161; 97162

== ENCOUNTER 2023-03-16 06:47 | Outpatient (REF) | payer OTHER, SELFPAY ==
[2023-03-16 11:30] LABS: MANUAL DIFF FLAG NO
[2023-03-16 11:55] LABS: Basophils Percent Auto 0.5 % (0-2); Eosinophils Absolute Auto 0.2 X10*3/uL (0.0-0.4); Eosinophils Percent Auto 2.7 % (0-4); Hematocrit 48.4 % (42.0-52.0); Hemoglobin 16.4 g/dl (14.0-18.0); Imm Gran Abs Auto 0.01 X10*3/uL (0.00-0.03); Imm Gran Pct Auto 0.1 % (0.0-0.4); Lymphocytes Absolute Auto 2.8 X10*3/uL (1.2-4.9); Lymphocytes Percent Auto 38.6 % (20-40); Mean Corpuscular HGB Conc 33.9 g/dl (31.0-36.0); Mean Corpuscular Volume 91.5 fL (80.0-98.0); Mean Platelet Volume 10.4 fL (9.4-12.4); Monocytes Absolute Auto 0.6 X10*3/uL (0.1-1.2); Monocytes Percent Auto 8.3 % (2-11); Neutrophils Absolute Auto 3.6 x10*3/uL (2.0-8.3); Neutrophils Percent Auto 49.8 % (45-73); Platelet Count 275 X10*3/uL (160-400); Red Blood Count 5.29 X10*6/uL (4.60-5.80); Red Cell Distribution Width 12.5 % (11.0-16.0); White Blood Count 7.3 X10*3/uL (4.8-10.8)
[2023-03-16 12:53] LABS: Alanine Aminotransferase 70 U/L (0-40); Albumin Level 3.9 g/dL (3.5-5.0); Alkaline Phosphatase 62 U/L (39-117); Anion Gap 11 (12-20); Aspartate Amino Transferase 35 U/L (5-37); Bilirubin Total 1.1 mg/dL (0.0-1.0); Blood Urea Nitrogen 16 mg/dL (9-16); Calcium 9.3 mg/dL (8.4-10.2); Carbon Dioxide 31 mmol/L (22-29); Chloride 103 mmol/L (96-108); Cholesterol 176 mg/dL (<200); Estimated Glomerular Filt Rate > 60; Glucose Fasting 83 mg/dL (60-99); HDL Cholesterol 46 mg/dL (>40); LDL Cholesterol Calculated 112 mg/dL (<100); Potassium 4.1 mmol/L (3.3-5.1); Sodium 141 mmol/L (135-145); Total Protein 7.1 g/dL (6.5-8.0); Triglycerides 90 mg/dL (<150)
[2023-03-16 13:20] LABS: TSH reflex Free T4 0.77 uIU/mL (0.32-4.0)
[2023-03-20 15:54] LABS: Testosterone, Total 257 ng/dL (250-1100)
== END 2023-03-16 06:48 | disposition home or self-care (01) ==
LOC: HO.HMGCLDS 06:47
PROVIDERS: PCP Internal Medicine; Visit Provider Internal Medicine
DX: R79.89 Other specified abnormal findings of blood chemistry (principal); D75.1 Secondary polycythemia; E78.5 Hyperlipidemia, unspecified
CPT/HCPCS: 36415; 80053; 80061; 84402; 84403; 84443; 85025

== ENCOUNTER 2023-03-22 10:17 | Outpatient (AMB) | payer OTHER, SELFPAY ==
[2023-03-22 10:24] VITALS: BP 120/76; PULSE 87; O2SAT 97; BMI 31.6
--- NOTE | 2023-03-22 10:24 | A.OFFPC_ITS ---
Vital Signs 03/22/23 10:24 Height 5 ft 8 in Weight 208 lb BMI 31.6 BP 120/76 Blood Pressure Location Lt brachial Position Sitting Pulse 87 Pulse Source Pulse Oximeter Pulse Oximetry (%) 97 Oxygen Delivery Method Room Air Intake Visit Reasons: Annual PE Intake Note: Pt is here today for PE. Allergies No Known Allergies Allergy (Verified 03/22/23 10:26) Medication List - Last Reconciled 03/22/23 by Merlyn Beauchamp MD flecainide 100 mg PO DAILY meclizine 25 mg PO BID PRN metoprolol tartrate 25 mg PO BID multivitamin 1 tab PO DAILY testosterone 1 tube transdermal QAM Tobacco use date assessed: 03/09/23 Dental Screening Dental Screen Date: 03/22/23 Did you have a dental visit in the last 12 months?: Yes Did you have a dental problem in the last 6 months where you did not have access to dental care?: No Was dental information given to patient?: Patient has dentist HPI Annual PE HPI Details Pt presents for PE. Patient has stopped taking testosterone injections from company in [place]. He reports feeling more tired. He denies any recurrent palpitations or AFib episodes. [facility] Medical History Asthma Anxiety Vertigo Shoulder pain, left Chest pain Annual physical exam Surgical History No significant past surgical history Family History Father Hx of type 2 diabetes mellitus Mother Hx of breast cancer Hx of heat stroke Sister Multiple sclerosis Other Mental health disorder Substance use disorder Social History Household Members: Spouse and Children Housing: House Alcohol intake: never Patient Tobacco Use Status: Never used Tobacco e-Cigarette/Vaping Use: Never Used Second Hand Smoke Exposure: No Current occupational status: employed Cognitive needs: No Hearing needs: No Vision needs: No Questionnaire PHQ-9 Over the last 2 weeks, how often have you been bothered by any of the following problems? 1. Little interest or pleasure in doing things: not at all 2. Feeling down, depressed, or hopeless: not at all 3. Trouble falling or staying asleep, or sleeping too much: not at all 4. Feeling tired or having little energy: not at all 5. Poor appetite or overeating: not at all 6. Feeling bad about yourself - or that you are a failure or have let yourself or your family down: not at all 7. Trouble concentrating on things, such as reading the newspaper or watching television: not at all 8. Moving or speaking so slowly that other people could have noticed. Or the opposite - being so fidgety or restless that you have been moving around a lot more than usual: not at all 9. Thoughts that you would be better off or of hurting yourself in some way: not at all Total score: 0 Depression Screening Interpretation: Negative Depression Screening Done: Yes Source: Developed by Drs. Bobby Flores, Tomeka Joshua, Spike Mason and colleagues, with an educational zach from [employer]. Thrive Questionnaire Date Thrive assessed: 03/22/23 I am a: Patient What is your living situation today?: I have a steady place to live Within the past 12 months, did the food you bought not last and you didn't have the money to get more?: Never true Within the past 12 months, did you worry whether your food would run out before you got money to buy more?: Never true Do you have trouble paying for medicines?: No Do you have trouble getting transportation to medical appointments?: No Do you have trouble paying your heating and electricity bill?: No Do you have trouble taking care of your child, family member or friend?: No Do you have trouble with day-to-day activities such as bathing, preparing meals, shopping, managing finances, etc.?: No Are you currently unemployed and looking for a job?: No Are you interested in more education?: No Please select the resources that you would like help with: None THRIVE Score: 0 AUDIT C Alcohol Use Questionnaire (AUDIT-C) 1. How often do you have a drink containing alcohol?: Never 3. How often do you have six or more drinks on one occasion?: Never Total Score: 0 FLACA-7 AMB Questionnaire FLACA-7 Date FLACA - 7 assessed: 03/22/23 Feeling nervous, anxious, or on edge: 0 = Not at all Not being able to stop or control worryin = Not at all Worrying too much about different things: 0 = Not at all Trouble relaxin = Not at all Being so restless that it is hard to sit still: 0 = Not at all Becoming easily annoyed or irritable: 0 = Not at all Feeling afraid as if something awful might happen: 0 = Not at all Total FLACA-7 score (0-4 normal; 5-9 mild; 10-14 moderate; 15-21 severe): 0 Source: Developed by Drs. Bobby Flores, Tomeka Joshua, Spike Mason and colleagues, with an educational zach from [employer]. Review of Systems Const All systems reviewed & are unremarkable except as noted in HPI and below Reports no additional complaints Eyes Reports no additional complaints ENT Reports no additional complaints Card Reports no additional complaints Resp Reports no additional complaints GI Reports no additional complaints Reports no additional complaints Physical exam (Primary Care) Vital Signs: Last Vital Signs Pulse 87 03/22/23 10:24 BP 120/76 03/22/23 10:24 Pulse Ox 97 03/22/23 10:24 Oxygen Delivery Method Room Air 03/22/23 10:24 BMI result Body Mass Index 31.6 Tobacco/Smoking Status: Tobacco use Status Tobacco use date assessed 03/09/23 03/22/23 10:27 Patient Tobacco Use Status Never used Tobacco 03/22/23 10:27 e-Cigarette/Vaping Use Never Used 03/22/23 10:27 Depression Screening Interpretation: Negative Thrive Assessment: Date of Thrive Assessment Date Thrive assessed 03/21/22 03/22/23 10:27 Const General: no acute distress HENMT Head: Yes normal to inspection Ears: hearing grossly normal bilaterally Face and sinus: Yes normal facial exam Mouth: Normal oral and palatal mucosa present Eyes General: appearance normal, both eyes and all related structures Neck Neck: Yes no lymphadenopathy and Yes supple Resp Effort & Inspection: normal respiratory effort Auscultation: clear to auscultation bilaterally Cardio Rhythm: regular rhythm Heart sounds: S1 normal heart sound present and S2 normal heart sound present GI Inspection: Yes normal to inspection Palpation (GI): Soft to palpation Percussion: Yes normal to percussion Auscultation: normal bowel sounds Assessment and Plan Assessment & Plan (1) Low testosterone in male: Code(s): R79.89 - Other specified abnormal findings of blood chemistry Plan: Patient has been off testosterone injection for a month..His free testosterone level is borderline low. He will try testosterone gel 1 tube daily and will be referred to Urology. testosterone level will be checked in 1 month (2) History of atrial fibrillation: Comment: Annually, f/u [facility] cardiology, will have catheter ablation Code(s): Z86.79 - Personal history of other diseases of the circulatory system (3) Annual physical exam: Code(s): Z00.00 - Encounter for general adult medical examination without abnormal findings Plan: Well-balanced diet regular physical activity discussed with the patient. Follow-up in 6 months with a fasting labs before. Orders: Orders Testosterone, Free/Total 1 Month R7.89 - Other specified abnormal findings of blood chemistry Comprehensive [place]. Panel Fast 6 Months E78.5 - Hyperlipidemia, unspecified, Z00.00 - Encounter for general adult medical examination without abnormal findings, Z86.79 - Personal history of other diseases of the circulatory system Complete Blood Count Auto Diff 6 Months E78.5 - Hyperlipidemia, unspecified, Z00.00 - Encounter for general adult medical examination without abnormal findings, Z86.79 - Personal history of other diseases of the circulatory system Lipid Panel 6 Months E78.5 - Hyperlipidemia, unspecified, Z00.00 - Encounter for general adult medical examination without abnormal findings, Z86.79 - Personal history of other diseases of the circulatory system Liver Panel 1 Month R79.89 - Other specified abnormal findings of blood chemistry Testosterone, Free/Total 6 Months R79.89 - Other specified abnormal findings of blood chemistry Referrals Urology Referral R7. - Other specified abnormal findings of blood chemistry Medications: New testosterone 1 tube transdermal QAM 150 grams 3RF Coding Level of Care Code Est Pt Prev Care 40-64y(30094) Diagnoses Low testosterone in male R79.89 History of atrial fibrillation Z86.79 Annual physical exam Z00.00
== END 2023-03-22 11:55 | disposition home or self-care (01) ==
PROVIDERS: PCP Internal Medicine; Visit Provider Internal Medicine
DX: R79.89 Other specified abnormal findings of blood chemistry (principal); Z86.79 Personal history of other diseases of the circulatory system; Z00.00 Encounter for general adult medical examination without abnormal findings
CPT/HCPCS: 99396

== ENCOUNTER 2023-06-28 09:23 | Outpatient (AMB) | payer OTHER, SELFPAY ==
[2023-06-28 09:29] VITALS: BP 122/86; PULSE 92; O2SAT 96; BMI 30.6
--- NOTE | 2023-06-28 09:29 | A.OFFPC_ITS ---
Vital Signs 06/28/23 09:29 Height 5 ft 8 in Weight 201 lb BMI 30.6 BP 122/86 Blood Pressure Location Lt brachial Position Sitting Pulse 92 Pulse Source Pulse Oximeter Pulse Oximetry (%) 96 Oxygen Delivery Method Room Air Intake Visit Reasons: Back pain Intake Note: Pt is here today for sick visit. Pt c/o middle back pain. Allergies No Known Allergies Allergy (Verified 06/28/23 09:32) Medication List - Last Reconciled 06/28/23 by Merlyn Beauchamp MD baclofen 10 mg PO BID flecainide 100 mg PO DAILY meloxicam 15 mg PO DAILY metoprolol tartrate 25 mg PO BID multivitamin 1 tab PO DAILY testosterone 1 tube transdermal QAM Tobacco use date assessed: 03/09/23 Dental Screening Dental Screen Date: 03/22/23 HPI Back pain HPI Details Pt c/o persistent upper lumbar spine pain started after twisting his body. Pt went to walk in 3 weeks ago and was prescribed Baclofen and anti- inflammatory with only partial relief. Patient denies pain radiating to lower extremities change in bladder or bowel function. He had similar pain last year and had negative x-rays of lumbar spine. [facility] Medical History Asthma Anxiety Vertigo Shoulder pain, left Chest pain Annual physical exam Surgical History No significant past surgical history Family History Father Hx of type 2 diabetes mellitus Mother Hx of breast cancer Hx of heat stroke Sister Multiple sclerosis Other Mental health disorder Substance use disorder Social History Household Members: Spouse and Children Housing: House Alcohol intake: never Patient Tobacco Use Status: Never used Tobacco e-Cigarette/Vaping Use: Never Used Second Hand Smoke Exposure: No service: No Current occupational status: employed Cognitive needs: No Hearing needs: No Vision needs: No Questionnaire Thrive Questionnaire Date Thrive assessed: 03/22/23 FLACA-7 AMB Questionnaire FLACA-7 Date FLACA - 7 assessed: 03/22/23 Source: Developed by Drs. Bobby Flores, Tomeka Joshua, Spike Mason and colleagues, with an educational zach from [employer]. Review of Systems Const All systems reviewed & are unremarkable except as noted in HPI and below ENT Reports no additional complaints Card Reports no additional complaints Resp Reports no additional complaints GI Reports no additional complaints Reports no additional complaints Physical exam (Primary Care) Vital Signs: Last Vital Signs Pulse 92 06/28/23 09:29 BP 122/86 06/28/23 09:29 Pulse Ox 96 06/28/23 09:29 Oxygen Delivery Method Room Air 06/28/23 09:29 BMI result Body Mass Index 30.6 Tobacco/Smoking Status: Tobacco use Status Tobacco use date assessed 03/09/23 06/28/23 09:29 Patient Tobacco Use Status Never used Tobacco 06/28/23 09:29 e-Cigarette/Vaping Use Never Used 06/28/23 09:29 Thrive Assessment: Date of Thrive Assessment Date Thrive assessed 03/22/23 06/28/23 09:29 Const General: no acute distress HENMT Head: Yes normal to inspection Eyes General: appearance normal, both eyes and all related structures Neck Neck: Yes supple Resp Effort & Inspection: normal respiratory effort Auscultation: clear to auscultation bilaterally Cardio Rhythm: regular rhythm Heart sounds: S1 normal heart sound present and S2 normal heart sound present Back/Spine/Pelvis Other: Paraspinal tenderness in upper lumbar region, straight leg rising 90 degrees bilaterally, deep tendon reflexes 1+ bilaterally Assessment and Plan Assessment & Plan (1) Lower back pain: Code(s): M54.50 - Low back pain, unspecified Plan: For persistent lower back pain patient will be referred to physical therapy he will continue baclofen and meloxicam for 10 days as prescribed. Orders: Orders PT Evaluation and Treatment Today M54.50 - Low back pain, unspecified Medications: New meloxicam 15 mg PO DAILY 10 tabs 0RF baclofen 10 mg PO BID 20 tabs 0RF Coding Level of Care Code Est Pt Level 3 (56877) Diagnoses Lower back pain M54.50
== END 2023-06-28 11:52 | disposition home or self-care (01) ==
PROVIDERS: PCP Internal Medicine; Visit Provider Internal Medicine
DX: M54.50 Low back pain, unspecified (principal)
CPT/HCPCS: 99213

== ENCOUNTER 2023-08-23 07:00 | Outpatient (RCR) | payer OTHER, SELFPAY ==
--- NOTE | 2023-07-05 08:15 | MHC.PT.EP ---
[facility] [place] Office [place] Office [place] Office [address] [phone] F: [phone] F: [phone] F: [phone] F: [phone] Physical Therapy Plan of Care Date of Evaluation: 07/05/23 Date of Surgery: Diagnosis: low back pain. Assessment: Patient is a 43 year old R handed male who presents with s/s consistent with low back pain. 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 Patient past medical history includes asthma and AFib. Current impairments include pain, posture, ROM, strength, activity tolerance and functional mobility. Functional limitations include decreased ability to push, pull, lift, bend and squat. Patient is motivated with good rehab potential. Skilled PT will address impairments and functional limitations in order to achieve goals. Frequency and Duration: The patient will be seen 2x/week for 5 weeks Short Term Goals: I with HEP -2 weeks 90/90 lacking 30 or less - 3 weeks hip ER 35 b/l - 3 weeks max pain with work day 05/05 - 3 weeks Detention Goals: Oswestry 20% or less - 5 weeks I with work modifications - 5 weeks Flexion 75% and pain free - 5 weeks Rotation 75% and pain free - 5 weeks Treatment Plan: Modalities to reduce pain, spasms and effusion. Manual therapy to restore motion and function. Therapeutic exercise to improve strength and flexibility. Neuromuscular re-education for posture and balance. Therapeutic activities to return to functional activities of daily living. Electronically signed by: Dick Parker, PT Please sign and return to therapist. Thank you for your referral.
--- NOTE | 2023-10-24 10:48 | MHC.PT.DC ---
[facility] [place] Office [place] Office [place] Office [address] Emeli Marie [address] [phone] F: [phone] F: [phone] F: [phone] F: [phone] Physical Therapy Discharge Report Diagnosis: low back pain. Date of Surgery: Date of Evaluation: 07/05/23 Date of Discharge: 09/24/23 Treatments to Date: 6 Cancellations to Date: No Shows to Date: Discharge Status: Independent with HEP Discharge Summary: Pt had improved on s/s and had improved postural understanding. I with HEP and elected to d/c to HEP at this time. 08/23/23: rib asymmetries still present but s/s are less. He was able to jetski for several hours this week. 08/16/23: pt progressing well with skilled PT. no adverse reactions. some tightness still we added PB flexion/lat and chops/lifts with good response. 08/02/23: reduced s/s. pain less overall with activity. reduced tissue tension. continue to progress as tolerated. 07/26/23: pt progressing well. able to play basketball over the weekend and feeling min soreness - previously unable to do this. 07/19/23: pt having less pain during the work day and is intentional about modifying work activities to manage s/s. 07/12/23: pt progressing well with skilled PT and has been modifying work activities. he does have some soreness possibly from a back workout he did at the gym, not necessarily PT HEP related. Patient is a 43 year old R handed male who presents with s/s consistent with low back pain. 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 Patient past medical history includes asthma and AFib. Current impairments include pain, posture, ROM, strength, activity tolerance and functional mobility. Functional limitations include decreased ability to push, pull, lift, bend and squat. Patient is motivated with good rehab potential. Skilled PT will address impairments and functional limitations in order to achieve goals. Electronically signed by: Dick Parker, PT Please sign and return to therapist. Thank you for your referral.
== END 2023-10-24 10:49 | disposition home or self-care (01) ==
LOC: HO.PTCHIC 07:00
PROVIDERS: PCP Internal Medicine; Visit Provider Internal Medicine
DX: M54.50 Low back pain, unspecified (principal)
CPT/HCPCS: 97014; 97110; 97140; 97161

== ENCOUNTER 2023-11-09 11:24 | Outpatient (AMB) | payer OTHER, SELFPAY ==
[2023-11-09 11:33] VITALS: BP 136/80; PULSE 80; O2SAT 97; BMI 30.6
--- NOTE | 2023-11-09 11:33 | MHC.PC.OV ---
Vital Signs 11/09/23 11:33 Height 5 ft 8 in Weight 201 lb BMI 30.6 BP 136/80 Blood Pressure Location Rt brachial Position Sitting Pulse 80 Pulse Source Pulse Oximeter Pulse Oximetry (%) 97 Oxygen Delivery Method Room Air Intake Visit Reasons: BackPain Allergies No Known Allergies Allergy (Verified 11/09/23 11:34) Medication List - Last Reconciled 11/09/23 by Merlyn Beauchamp MD baclofen 10 mg PO BID flecainide 100 mg PO DAILY meloxicam 15 mg PO DAILY metoprolol tartrate 25 mg PO BID PRN multivitamin 1 tab PO DAILY testosterone 1 tube transdermal QAM Tobacco use date assessed: 03/09/23 Dental Screening Dental Screen Date: 03/22/23 HPI BackPain HPI Details Pt c/o chronic L knee pain on and off worse when working out at the gym, better at rest. He denies knee swelling. Patient used to play sports in high school including basketball and soccer but does not recall knee injury. [facility] Medical History Asthma Anxiety Vertigo Shoulder pain, left Chest pain Annual physical exam Surgical History No significant past surgical history Family History Father Hx of type 2 diabetes mellitus Mother Hx of breast cancer Hx of heat stroke Sister Multiple sclerosis Other Mental health disorder Substance use disorder Social History Household Members: Spouse and Children Housing: House Alcohol intake: never Patient Tobacco Use Status: Never used Tobacco e-Cigarette/Vaping Use: Never Used Second Hand Smoke Exposure: No service: No Current occupational status: employed Cognitive needs: No Hearing needs: No Vision needs: No Questionnaire PHQ-9 Over the last 2 weeks, how often have you been bothered by any of the following problems? 1. Little interest or pleasure in doing things: not at all 2. Feeling down, depressed, or hopeless: not at all 3. Trouble falling or staying asleep, or sleeping too much: not at all 4. Feeling tired or having little energy: not at all 5. Poor appetite or overeating: not at all 6. Feeling bad about yourself - or that you are a failure or have let yourself or your family down: not at all 7. Trouble concentrating on things, such as reading the newspaper or watching television: not at all 8. Moving or speaking so slowly that other people could have noticed. Or the opposite - being so fidgety or restless that you have been moving around a lot more than usual: not at all 9. Thoughts that you would be better off or of hurting yourself in some way: not at all Total score: 0 Depression Screening Interpretation: Negative Depression Screening Done: Yes 42001 - PHQ-9 Billing: Yes Source: Developed by Drs. Bobby Flores, Tomeka Joshua, Spike Mason and colleagues, with an educational zach from [employer]. Thrive Questionnaire Date Thrive assessed: 03/22/23 I am a: Patient What is your living situation today?: I have a steady place to live Within the past 12 months, did the food you bought not last and you didn't have the money to get more?: Never true Within the past 12 months, did you worry whether your food would run out before you got money to buy more?: Never true Do you have trouble paying for medicines?: No Do you have trouble getting transportation to medical appointments?: No Do you have trouble paying your heating and electricity bill?: No Do you have trouble taking care of your child, family member or friend?: No Do you have trouble with day-to-day activities such as bathing, preparing meals, shopping, managing finances, etc.?: No Are you currently unemployed and looking for a job?: No Are you interested in more education?: No Please select the resources that you would like help with: None Currently or been in a relationship where the following occur: No concerns reported THRIVE Score: 0 AUDIT C Alcohol Use Questionnaire (AUDIT-C) 1. How often do you have a drink containing alcohol?: Never Total Score: 0 FLACA-7 AMB Questionnaire FLACA-7 Date FLACA - 7 assessed: 03/22/23 Feeling nervous, anxious, or on edge: 0 = Not at all Not being able to stop or control worryin = Not at all Worrying too much about different things: 0 = Not at all Trouble relaxin = Not at all Being so restless that it is hard to sit still: 0 = Not at all Becoming easily annoyed or irritable: 0 = Not at all Feeling afraid as if something awful might happen: 0 = Not at all Total FLACA-7 score (0-4 normal; 5-9 mild; 10-14 moderate; 15-21 severe): 0 Source: Developed by Drs. Bobby Flores, Tomeka Joshua, Spike Mason and colleagues, with an educational zach from [employer]. Review of Systems Const All systems reviewed & are unremarkable except as noted in HPI and below Card Reports no additional complaints Resp Reports no additional complaints GI Reports no additional complaints Reports no additional complaints Physical exam (Primary Care) Vital Signs: Last Vital Signs Pulse 80 11/09/23 11:33 BP 136/80 11/09/23 11:33 Pulse Ox 97 11/09/23 11:33 Oxygen Delivery Method Room Air 11/09/23 11:33 BMI result Body Mass Index 30.6 Tobacco/Smoking Status: Tobacco use Status Tobacco use date assessed 03/09/23 11/09/23 11:35 Patient Tobacco Use Status Never used Tobacco 11/09/23 11:35 e-Cigarette/Vaping Use Never Used 11/09/23 11:35 PHQ-9: PHQ-9 Score PHQ-9: Total score 0 11/09/23 11:35 Depression Screening Interpretation: Negative Thrive Assessment: Date of Thrive Assessment Date Thrive assessed 03/22/23 11/09/23 11:35 Currently or been in a relationship where the following occur: No concerns reported Const General: no acute distress [place]ENW[place] Head: Yes normal to inspection Neck Neck: Yes supple Resp Effort & Inspection: normal respiratory effort Auscultation: clear to auscultation bilaterally Cardio Rhythm: regular rhythm Heart sounds: S1 normal heart sound present and S2 normal heart sound present Extrem Other: There is a slight decreased range of motion left knee, no soft tissue swelling erythema or warmth General: Yes no clubbing, cyanosis or edema Assessment and Plan Assessment & Plan (1) Knee pain, bilateral: Code(s): M25.561 - Pain in right knee; M25.562 - Pain in left knee Plan: Obtain x-rays of both knees (2) Left knee pain: Code(s): M25.562 - Pain in left knee Plan: Referred to physical therapy if the symptoms persist MRI of the left knee will be obtained to evaluate for meniscus tear (3) Annual physical exam: Code(s): Z00.00 - Encounter for general adult medical examination without abnormal findings (4) Hyperlipemia: Code(s): E78.5 - Hyperlipidemia, unspecified Plan: Continue low-cholesterol diet Orders: Orders Complete Blood Count Auto Diff 5 Months E78.5 - Hyperlipidemia, unspecified, Z00.00 - Encounter for general adult medical examination without abnormal findings XR knee standing BI Today M25.561 - Pain in right knee, M25.562 - Pain in left knee PT Evaluation and Treatment Today M25.562 - Pain in left knee Comprehensive [place]. Panel Fast 5 Months E78.5 - Hyperlipidemia, unspecified, Z00.00 - Encounter for general adult medical examination without abnormal findings Lipid Panel 5 Months E78.5 - Hyperlipidemia, unspecified, Z00.00 - Encounter for general adult medical examination without abnormal findings TSH reflex Free T4 5 Months E78.5 - Hyperlipidemia, unspecified, Z00.00 - Encounter for general adult medical examination without abnormal findings Testosterone, Free/Total 5 Months E78.5 - Hyperlipidemia, unspecified, Z00.00 - Encounter for general adult medical examination without abnormal findings UA w Microscopic 5 Months E78.5 - Hyperlipidemia, unspecified, Z00.00 - Encounter for general adult medical examination without abnormal findings Coding Level of Care Code Est Pt Level 4 (02205) Diagnoses Knee pain, bilateral M25.561; M25.562 Left knee pain M25.562 Annual physical exam Z00.00 Hyperlipemia E78.5
== END 2023-11-09 12:08 | disposition home or self-care (01) ==
PROVIDERS: PCP Internal Medicine; Visit Provider Internal Medicine
DX: M25.561 Pain in right knee (principal); M25.562 Pain in left knee; Z00.00 Encounter for general adult medical examination without abnormal findings; E78.5 Hyperlipidemia, unspecified
CPT/HCPCS: 99214

== ENCOUNTER 2023-11-09 11:58 | Outpatient (REF) | payer OTHER, SELFPAY ==
--- NOTE | ~2023-11-09 | XR_ITS ---
EXAMINATION: XR KNEE AP STANDING CLINICAL INFORMATION: Pain in the right knee COMPARISON: None available. TECHNIQUE: AP bilateral standing view of the knees was obtained. FINDINGS: No fracture or joint effusion. Alignment is anatomic. Joint spaces are maintained. No abnormal soft tissue calcification. XR/XR knee standing BI IMPRESSION: Normal knees. Electronically signed by: Leopoldo Abad MD 11/15/2023 10:04 PM EDT
== END 2023-11-09 11:59 | disposition home or self-care (01) ==
LOC: HO.HMGCX 11:58
PROVIDERS: PCP Internal Medicine; Visit Provider Internal Medicine
DX: M25.561 Pain in right knee (principal); M25.562 Pain in left knee
CPT/HCPCS: 73565

== ENCOUNTER 2024-02-12 13:29 | Outpatient (AMB) | payer OTHER, SELFPAY ==
[2024-02-12 13:40] VITALS: BP 104/66; PULSE 93; O2SAT 96; BMI 31.0
--- NOTE | 2024-02-12 13:40 | A.OFFPC_ITS ---
Vital Signs 02/12/24 13:40 Height 5 ft 8 in Weight 204 lb BMI 31.0 BP 104/66 Blood Pressure Location Rt brachial Position Sitting Pulse 93 Pulse Source Pulse Oximeter Pulse Oximetry (%) 96 Oxygen Delivery Method Room Air Intake Visit Reasons: pain in left arm Intake Note: Pt is here today for a sick visit. Pt c/o L arm pain. Allergies No Known Allergies Allergy (Verified 02/12/24 13:54) Tobacco use date assessed: 02/12/24 Dental Screening Dental Screen Date: 03/22/23 HPI pain in left arm HPI Details Pt c/o L arm aching pain 2/10 for 5 days, constant, no related to activity. Pt c/o lateral L elbow pain for a few months, worse when working out, lifting weights. Pt denies left upper extremity weakness neck pain palpitations chest pain. PFS Medical History Asthma Anxiety Vertigo Shoulder pain, left Chest pain Annual physical exam Surgical History No significant past surgical history Family History Father Hx of type 2 diabetes mellitus Mother Hx of breast cancer Hx of heat stroke Sister Multiple sclerosis Other Mental health disorder Substance use disorder Social History Household Members: Spouse and Children Housing: House Alcohol intake: never Patient Tobacco Use Status: Never used Tobacco e-Cigarette/Vaping Use: Never Used Second Hand Smoke Exposure: No service: No Current occupational status: employed Cognitive needs: No Hearing needs: No Vision needs: No Questionnaire Thrive Questionnaire Date Thrive assessed: 11/09/23 I am a: Patient What is your living situation today?: I have a steady place to live Within the past 12 months, did the food you bought not last and you didn't have the money to get more?: Never true Within the past 12 months, did you worry whether your food would run out before you got money to buy more?: Never true Do you have trouble paying for medicines?: No Do you have trouble getting transportation to medical appointments?: No Do you have trouble paying your heating and electricity bill?: No Do you have trouble taking care of your child, family member or friend?: No Do you have trouble with day-to-day activities such as bathing, preparing meals, shopping, managing finances, etc.?: No Are you currently unemployed and looking for a job?: No Are you interested in more education?: No Please select the resources that you would like help with: None Currently or been in a relationship where the following occur: No concerns reported THRIVE Score: 0 FLACA-7 AMB Questionnaire FLACA-7 Date FLACA - 7 assessed: 03/22/23 Source: Developed by Drs. Bobby Flores, Tomeka Joshua, Spike Mason and colleagues, with an educational zach from [employer]. Review of Systems Const All systems reviewed & are unremarkable except as noted in HPI and below Reports no additional complaints Eyes Reports no additional complaints ENT Reports no additional complaints Physical exam (Primary Care) Vital Signs: Last Vital Signs Pulse 93 02/12/24 13:40 BP 104/66 02/12/24 13:40 Pulse Ox 96 02/12/24 13:40 Oxygen Delivery Method Room Air 02/12/24 13:40 BMI result Body Mass Index 31.0 Tobacco/Smoking Status: Tobacco use Status Tobacco use date assessed 02/12/24 02/12/24 13:57 Patient Tobacco Use Status Never used Tobacco 02/12/24 13:57 e-Cigarette/Vaping Use Never Used 02/12/24 13:40 Thrive Assessment: Date of Thrive Assessment Date Thrive assessed 11/09/23 02/12/24 13:40 Currently or been in a relationship where the following occur: No concerns reported Const General: no acute distress [facility] Head: Yes normal to inspection Face and sinus: Yes normal facial exam Throat: Yes posterior oropharynx normal Eyes General: appearance normal, both eyes and all related structures Neck Neck: Yes no lymphadenopathy and Yes supple Resp Effort & Inspection: normal respiratory effort Auscultation: clear to auscultation bilaterally Cardio Rhythm: regular rhythm Heart sounds: S1 normal heart sound present and S2 normal heart sound present Neuro Motor exam (neuro): 5/5 motor strength present throughout Extrem Other: Left elbow lateral tenderness full range of motion in elbow and shoulder, deep tendon reflexes 2+ bilaterally, no focal tenderness over left upper extremity General: Yes no clubbing, cyanosis or edema Coding Level of Care Code Est Pt Level 3 (34521) Diagnoses Tennis elbow M77.10 Assessment & Plan Assessment & Plan (1) Tennis elbow: Code(s): M77.10 - Lateral epicondylitis, unspecified elbow Category: Medical Plan: Patient was given exercises for tendinitis, he declined physical therapy, EKG showed normal sinus rhythm no ST-T changes
== END 2024-02-12 15:16 | disposition home or self-care (01) ==
PROVIDERS: PCP Internal Medicine; Visit Provider Internal Medicine
DX: M77.10 Lateral epicondylitis, unspecified elbow (principal)

== ENCOUNTER 2024-02-21 14:04 | Outpatient (AMB) | payer OTHER, SELFPAY ==
--- NOTE | 2024-02-21 14:13 | A.OFFVIS_ITS ---
Intake Visit Reasons: [employer]-pain in left knee Intake Note: Jose is a 44 year old male who presents with complaints of progressively worsening left knee pain and giving way. The patient describes his pain as sharp in nature. Most of the pain is along the medial aspect of his knee. His symptoms have gotten worse over the last year in spite of continued non operative treatments. He has failed the last 6 weeks of conservative treatment which has included physical therapy exercises, Tylenol and anti-inflammatory medicines. The patient states that he has difficulty exercising his legs because of his pain. Allergies No Known Allergies Allergy (Verified 02/21/24 14:16) Medication List - Last Reconciled 02/21/24 by Chase Styles MD baclofen 10 mg PO BID flecainide 100 mg PO DAILY meloxicam 15 mg PO DAILY metoprolol tartrate 25 mg PO BID PRN multivitamin 1 tab PO DAILY testosterone 1 tube transdermal M [facility] Medical History Asthma Anxiety Vertigo Shoulder pain, left Chest pain Annual physical exam Surgical History No significant past surgical history Family History Father Hx of type 2 diabetes mellitus Mother Hx of breast cancer Hx of heat stroke Sister Multiple sclerosis Other Mental health disorder Substance use disorder Social History Household Members: Spouse and Children Housing: House Alcohol intake: never Patient Tobacco Use Status: Never used Tobacco e-Cigarette/Vaping Use: Never Used Second Hand Smoke Exposure: No service: No Current occupational status: employed Cognitive needs: No Hearing needs: No Vision needs: No Physical Exam Const Other: Well-nourished well-developed very friendly male awake alert and oriented x3 in no acute distress Extrem Other: Bilateral lower extremity examination shows good capillary refill, no skin lesions noted, normal sensation light touch Left knee examination shows a minimal effusion, minimal crepitus with range of motion, tenderness along his medial joint line, positive Lucero's test, no instability Results Reviewed Results Reviewed: Standing full weight-bearing x-rays of the patient's left knee show mild diffuse joint space narrowing, no acute bony abnormalities Assessment & Plan Assessment & Plan (1) Tear of medial meniscus of left knee: Code(s): S83.242A - Other tear of medial meniscus, current injury, left knee, initial encounter Category: Medical Plan Mr. Ferro presents with progressively worsening left knee pain and mechanical symptoms most likely due to a tear of his medial meniscus. Thus, I will send the patient for an MRI of his left knee for further evaluation. I will see him back once the MRI is completed to discuss the findings and treatment options. He will continue with his activity modifications in the meantime. Feel free to call me at any time should questions regarding his orthopedic management arise. I spent 22 minutes in reviewing the patient's records and imaging studies, seeing the patient and documenting in the medical record. Orders: Orders knee LT wo con Today S83.242A - Other tear of medial meniscus, current injury, left knee, initial encounter Coding Level of Care Code New Pt Level 3 (86375) Complex EM visit Add On G2211 Diagnoses Tear of medial meniscus of left knee S83.242A
== END 2024-02-21 14:42 | disposition home or self-care (01) ==
PROVIDERS: PCP Internal Medicine; Visit Provider Orthopaedic Surgery
DX: S83.242A Other tear of medial meniscus, current injury, left knee, initial encounter (principal)
CPT/HCPCS: 99203

== ENCOUNTER → 2024-02-21 14:04 | Outpatient (BNVA) | payer OTHER, SELFPAY | PROVIDERS: PCP Internal Medicine; Visit Provider Orthopaedic Surgery ==

== ENCOUNTER 2024-03-18 10:19 | Outpatient (AMB) | payer OTHER, SELFPAY ==
--- NOTE | 2024-03-18 10:21 | A.OFFVIS_ITS ---
Vital Signs 03/18/24 10:22 Height 5 ft 8 in Weight 204 lb BMI 31.0 Intake Visit Reasons: OV- LT knee MRI review Intake Note: Jose is a 44 year old male who presents with complaints of left knee pain. He describes his pain as sharp in nature. Most of the pain is along the anterior and medial aspect of his left knee. He denies any locking or giving way. He has tried Tylenol, anti-inflammatory medicines and baclofen which gave him mild relief. He has failed the last 3 months of conservative treatment. He has done physical therapy exercises which aggravated his pain. Has also tried wearing a knee brace which gives him mild relief. Allergies No Known Allergies Allergy (Verified 03/18/24 10:24) Medication List - Last Reconciled 03/18/24 by Chase Styles MD baclofen 10 mg PO BID flecainide 100 mg PO DAILY meloxicam 15 mg PO DAILY metoprolol tartrate 25 mg PO BID PRN multivitamin 1 tab PO DAILY testosterone 1 tube transdermal QAM [facility] Medical History Asthma Anxiety Vertigo Shoulder pain, left Chest pain Annual physical exam Surgical History No significant past surgical history Family History Father Hx of type 2 diabetes mellitus Mother Hx of breast cancer Hx of heat stroke Sister Multiple sclerosis Other Mental health disorder Substance use disorder Social History Household Members: Spouse and Children Housing: House Alcohol intake: never Patient Tobacco Use Status: Never used Tobacco e-Cigarette/Vaping Use: Never Used Second Hand Smoke Exposure: No service: No Current occupational status: employed Cognitive needs: No Hearing needs: No Vision needs: No Physical Exam Vital Signs: BMI result Body Mass Index 31.0 Const Other: Well-nourished well-developed very friendly male awake alert and oriented x3 in no acute distress Extrem Other: Bilateral lower extremity examination shows good capillary refill, no skin lesions noted, normal sensation light touch Left knee examination shows a minimal effusion, mild crepitus with range of motion, no joint line tenderness, negative Lucero's test Results Reviewed Results Reviewed: MRI of the patient's left knee shows no evidence of meniscus or ligamentous injury, mild degenerative changes most significant in the patellofemoral joint Assessment & Plan Assessment & Plan (1) Osteoarthritis of left knee: Code(s): M17.12 - Unilateral primary osteoarthritis, left knee Category: Medical Plan Mr. Ferro presents with left knee pain due to osteoarthritis. I had a lengthy discussion with the patient regarding the treatment options. Is considering undergoing a left knee viscosupplementation injection, such as Durolane. He will contact my office when he decides to have the injection. He will continue with his activity modifications in the meantime. Feel free to call me at any time should questions regarding his orthopedic management arise. Well-nourished well-developed very friendly male awake alert and oriented x3 in no acute distress Coding Level of Care Code Est Pt Level 3 (93203) Complex EM visit Add On G2211 Diagnoses Osteoarthritis of left knee M17.12
[2024-03-18 10:22] VITALS: BMI 31.0
--- OUTSIDE RECORDS SUMMARY | 2024-03-18 11:32 | XMS_ITS | Clinical Summary ---
Author Organization [facility] Address [address] [place] [address] Care Team Providers Care Hazardous Materials Analyst Name Role Phone Merlyn Beauchamp Primary Care Provider [phone] Allergies No known active allergies Medications multivitamin capsule Take 1 capsule by mouth daily. Active levalbuterol (XOPENEX HFA) 45 mcg/actuation inhaler 2 puffs every 4 hours as needed. 2 Active metoprolol tartrate (LOPRESSOR) 50 mg tablet Take 1 tablet (50 mg total) by mouth daily as needed (Rapid Heart beat). 30 tablet 1 4 Active flecainide (TAMBOCOR) 100 mg tablet TAKE 2 TABLETS (200 MG TOTAL) BY MOUTH NEEDED (AFIB. TAKE APPROXIMATELY 30 MINUTES AFTER METOPROLOL). TAKE 1 TABLET (100-200 MG TOTAL) BY MOUTH DAILY NEEDED (ON ONSET OF SYMPTOMS). 180 tablet 1 4 Active Active Problems Problem Noted Date Diagnosed Date NATHANIEL (obstructive sleep apnea) 01/23/2023 Coronary sinus abnormality 05/11/2021 Assessment & Plan (10/04/2022 3:24 PM EDT): No evidence of left to right shunting with IV in the left arm. Assessment & Plan (05/03/2022 10:03 AM EST): Bubble study showed normal biventricular size and function, and no evidence of zwae-lu-kaxax shunting with IV in left arm Assessment & Plan (05/11/2021 1:52 PM EDT): Previous TTE showed dilated coronary sinus. Recent echo did not visualize as well. We will arrange for bubble study with IV in the left arm to rule out persistent left SVC Abnormality of right ventricle of heart 05/12/19 Assessment & Plan (05/03/2022 10:04 AM EST): Initial echo suggested possible RV abnormality, however subsequent echoes that showed normal biventricular size and function Assessment & Plan (05/11/2021 1:58 PM EDT): Echocardiogram from 2018 reported reduced RV function with normal size. Initially, MRI was ordered, however he was claustrophobic and MRI was not performed. Fortunately, more recent TTE demonstrates normal RV size and function. Paroxysmal atrial fibrillation 03/09/2015 Assessment & Plan (10/04/2022 3:26 PM EDT): Jose has symptomatic paroxysmal atrial fibrillation which has been documented by twelve-lead EKG. Risk factors include fish oil use and possibly sleep apnea. He stopped fish oil supplementation in 2021. Sleep apnea evaluation is pending as below Regarding rate control, he takes no medications Regarding rhythm control, he has been prescribed a pill in pocket metoprolol 50 followed by flecainide 200mg 30 minutes later. Today, we again went over the technique/procedure of A-fib cryoablation followed by potential ablation of extrapulmonary vein triggers. We also went over outcomes of A-fib ablation in the setting of paroxysmal atrial fibrillation Regarding anticoagulation, his [id number]-VFOc score is 0. He does not take any anticoagulants. He understands that he should start Eliquis 5 mg twice daily leading up to A-fib ablation and would plan to continue for approximately 3 months thereafter With that, we can with the following plan: Proceed with A-fib cryoablation. Orders entered for anesthesia PSE visit. Renewed prescription for Eliquis 5 mg twice daily which she will start 1 month prior to ablation He would like to proceed with ablation in February 2023 once his main work season is completed He understands to use metoprolol followed by flecainide approximate 30 minutes later for any recurrent episodes of A-fib in the meantime I reached out to the sleep medicine apartment to facilitate sleep medicine evaluation Cardiac A-fib CT pending Assessment & Plan (05/03/2022 10:05 AM EST): Jose has symptomatic paroxysmal atrial fibrillation which has been documented by twelve-lead EKG. Risk factors include fish oil use and possibly sleep apnea. He stopped fish oil supplementation in 2021. Will refer for sleep apnea evaluation Regarding rate control, he takes no medications Regarding rhythm control, he has been prescribed a pill in pocket metoprolol 50 followed by flecainide 200mg 30 minutes later. Today, we went over technique and risk of A-fib cryoablation as well as possibly ablation of extrapulmonary vein triggers. Given his events are so infrequent, we will continue current strategy. We reaffirmed instructions on pill in pocket metoprolol followed by flecainide. Also will refer for sleep apnea testing and he will purchase the AliveCor device Regarding anticoagulation, his [id number] score is 0. He does not take any anticoagulants. Assessment & Plan (05/11/2021 1:54 PM EDT): Jose has symptomatic paroxysmal atrial fibrillation which has been documented by twelve-lead EKG. Risk factors include fish oil use. I asked him to discontinue his 2 g/day fish oil Regarding rate control, he takes no medications Regarding rhythm control, he has been prescribed a pill in pocket metoprolol followed by flecainide 30 minutes later. He is unsure of the doses, and will call back to let us know Regarding anticoagulation, his [id number] score is 0. He does not take any anticoagulants. Resolved Problems Problem Noted Date Diagnosed Date Resolved Date At risk for sleep apnea 10/04/202212/28 Assessment & Plan (10/04/2022 3:23 PM EDT): I had referred him to sleep medicine in the past. He says he initially heard that he would be getting appointment but never heard definitively. I reach back out to the sleep medicine department to facilitate this for him Family History Medical History Relation Name Comments Other Brother Family History of migraine headaches Other Father Family History of alcoholism Other Mother Family History of malignant neoplasm of breast Other Sister 1 Family History of alcoholism Other Sister 2 Family History of asthma Other Sister 3 Family History of migraine headaches Relation Name Status Comments Brother Father Mother Sister 1 Sister 2 Sister 3 Social History Tobacco Use Types Packs/Day Years Used Date Smoking Tobacco: Never Smokeless Tobacco: Never Tobacco Cessation:Counseling Given: Not Answered Comments:: Alcohol Use Standard Drinks/Week Comments Not Currently 0 (1 standard drink = 0.6 oz pur e alcohol) Sex and Gender Information Value Date Recorded Sex Assigned at Male 05/08/2021 4:24 PM EDT Legal Sex Male 7:11 AM EDT Gender Identity Male 05/08/2021 4:24 PM EDT Sexual Orientation Straight 05/08/2021 4: 24 PM EDT Last Filed Vital Signs Vital Sign Reading Time Taken Comments Blood Pressure 116/82 03/02/2023 7:26 AM EST Pulse 83 03/02/2023 7:26 AM EST Temperature - - Respiratory Rate 18 03/02/2023 7:26 AM EST Oxygen Saturation 98% 03/02/2023 7:26 AM EST Inhaled Oxygen Concentration - - Weight 92.4 kg (203 lb 11.3 oz) 03/02/2023 7:26 AM EST Height 172.7 cm (5' 8 ) 01/23/2023 8:18 AM EST Body Mass Index 30.97 01/23/2023 8:18 AM EST Plan of Treatment Scheduled Procedures Name Priority Associated Diagnoses Date/Ti me ABLATION A-FIB Paroxysmal atrial fibrillation (HCC) Health Maintenance Due Date Last Done Comments HIV Screening 1982 Hepatitis C Screening 1982 Varicella Vaccines (1 of 2 - 13+ 2-dose series) 1995 Hepatitis B Vaccines (1 of 3 - 19+ 3-dose series) 2001 DTaP,Tdap,and Td Vaccines (1 - Tdap) 02/09/2004 COVID-19 Vaccine ( - 2023-2 5 season) 2023 Influenza Vaccine (#1) 2023 Alcohol/Substance Use Screening 02/27/2024 Depression Screening and Follow-Up 02/27/2024 Social Drivers of Health Shania ual Screening 02/27/2024 RSV Vaccine (60+ years old a nd patients) (1 - 1-dose 75+ series) 2057 Pneumococcal Vaccine: Pediat bouchra (0-5 Years) and At-Risk Patients (6-64 Years) Aged Out No longer eligible b ased on patient's age to complete this topic Insurance BIL TIERED POS Care Teams Hazardous Materials Analyst Relationship Specialty Start Date End Date Merlyn Beauchamp [address] [place], [place] [phone] PCP - General Internal Medicine 03/25/18
--- OUTSIDE RECORDS SUMMARY | 2024-03-18 11:33 | XMS_ITS | Referral Summary ---
Author Organization [facility] Address [address] [place] [address] Care Team Providers Care Food Assembler Name Role Phone Merlyn Beauchamp Primary Care Provider [phone] Allergies No known active allergies Medications multivitamin [...] size and function, and no evidence of uwqo-hp-qbcqi shunting with IV in left arm Assessment [...] of paroxysmal atrial fibrillation Regarding anticoagulation, his [id number] score is 0. He does not take [...] purchase the AliveCor device Regarding anticoagulation, his [id number]-OSLi score is 0. He does not take [...] to let us know Regarding anticoagulation, his JEQ3DO1-WDRl score is 0. He does not take [...] medicine department to facilitate this for him Social History Tobacco Use Types Packs/Day Years [...] me ABLATION A-FIB Paroxysmal atrial fibrillation (HCC) Insurance [facility] TIER POS Care Teams Food Assembler Relationship Specialty Start Date End Date Merlyn Beauchamp [address] [place] [address] PCP - General Internal Medicine 03/25/18
--- OUTSIDE RECORDS SUMMARY | 2024-03-18 11:33 | XMS_ITS | Encounter Summary ---
Author Organization [facility] Address [address] [place] [address] Care Team Providers Care Manager Fast Food Name Role Phone Merlyn Beauchamp Primary Care Provider [phone] Encounter Details Date Type Department Care Team (Late st Contact Info) Description 02/25/2020 Telephone [facility] Central Scheduling Department [address] [place] [id number] Telephone Intake, Staff Social History Tobacco Use Types Packs/Day Years Used Date Smoking Tobacco: Never Smokeless Tobacco: Never Comments:: Sex and Gender Information Value Date Recorded Sex Assigned at Male 05/08/2021 4:24 PM EDT Legal Sex Male 7:11 AM EDT Gender Identity Male 05/08/2021 4:24 PM EDT Sexual Orientation Straight 05/08/2021 4: 24 PM EDT documented as of this encounter Miscellaneous Notes * Telephone Encounter - Rusty Perez - 02/25/2020 10:06 AM EST Provider Name: Dr Watkins Date of original appointment: N/a Reason for the appointment: ED follow up Follow up or Complex visit type: Follow up Name/Relationship of caller: Guerline Crump/ spouse Best phone number: [phone] PT was seen in [facility] on 02/22 for dizziness and low oxygen levels. PT was instructed to follow up with his automatic head sawyer. documented in this encounter Plan of Treatment Scheduled Procedures Name Priority Associated Diagnoses Date/Ti me ABLATION A-FIB Paroxysmal atrial fibrillation (HCC) documented as of this encounter Visit Diagnoses Not on filedocumented in this encounter Care Teams Manager Fast Food Relationship Specialty Start Date End Date Merlyn Beauchamp [address] [place] [address] PCP - General Internal Medicine 03/25/18 documented as of this encounter
--- OUTSIDE RECORDS SUMMARY | 2024-03-18 11:33 | XMS_ITS | Encounter Summary ---
Author Organization [facility] Address [address] [place] [address] Care Team Providers Care Inspector Packer Glass Container Name Role Phone Merlyn Beauchamp Primary Care Provider [phone] Encounter Details Date Type Department Care Team (Late st Contact Info) Description 02/02/2022 Telephone [facility] Heart Station [address] [place] [phone] Elder Valdez MD [address] [place] [address] [place] [address] Social History Tobacco Use Types Packs/Day Years Used Date Smoking Tobacco: Never Smokeless Tobacco: Never Comments:: Sex and Gender Information Value Date Recorded Sex Assigned at Male 05/08/2021 4:24 PM EDT Legal Sex Male 7:11 AM EDT Gender Identity Male 05/08/2021 4:24 PM EDT Sexual Orientation Straight 05/08/2021 4: 24 PM EDT documented as of this encounter Plan of Treatment Scheduled Procedures Name Priority Associated Diagnoses Date/Ti me ABLATION A-FIB Paroxysmal atrial fibrillation (HCC) documented as of this encounter Visit Diagnoses Not on filedocumented in this encounter Care Teams Inspector Packer Glass Container Relationship Specialty Start Date End Date Merlyn Beauchamp [address] [place] [address] PCP - General Internal Medicine 03/25/18 documented as of this encounter
--- OUTSIDE RECORDS SUMMARY | 2024-03-18 11:33 | XMS_ITS | Encounter Summary ---
Author Organization [facility] Address [address] [place] [address] Care Team Providers Care Table Games Dealer Name Role Phone Merlyn Beauchamp Primary Care Provider [phone] Encounter Details Date Type Department Care Team (Late st Contact Info) Description 07/27/2022 Orders Only [facility] Interventional Radiology [address] [place] [address] Floyd Barragan MD [address] [place], [place] [phone] Social History Tobacco Use Types Packs/Day Years Used Date Smoking Tobacco: Never Smokeless Tobacco: Never Comments:: Alcohol Use Standard Drinks/Week Comments Not [...] on filedocumented in this encounter Care Teams Table Games Dealer Relationship Specialty Start Date End Date Merlyn Beauchamp [address] [place] [address] PCP - General Internal Medicine 03/25/18 documented as of this encounter
== END 2024-03-18 10:48 | disposition home or self-care (01) ==
PROVIDERS: PCP Internal Medicine; Visit Provider Orthopaedic Surgery
DX: M17.12 Unilateral primary osteoarthritis, left knee (principal)
CPT/HCPCS: 99213

== ENCOUNTER 2024-04-07 06:34 | Outpatient (REF) | payer OTHER, SELFPAY ==
--- OUTSIDE RECORDS SUMMARY | 2024-04-07 06:36 | XMS_ITS | Encounter Summary ---
Author Organization [facility] Address [address] [place] [address] Care Team Providers Care Slot Service Specialist Name Role Phone Merlyn Beauchamp Primary Care Provider [phone] Encounter Details Date Type Department Care Team (Late st Contact Info) Description 02/25/2020 Telephone [facility] Central Scheduling Department [address] [place] [address] Telephone Intake, Staff Social History Tobacco Use [...] caller: Guerline Crump/ spouse Best phone number: [phone] PT was seen in [facility] on [facility]/22 for dizziness and low oxygen levels. PT was instructed to follow up with his integrity assessor. documented in this encounter Plan of Treatment Scheduled Procedures Name Priority Associated Diagnoses Date/Ti me ABLATION A-FIB Paroxysmal atrial fibrillation (HCC) documented as of this encounter Visit Diagnoses Not on filedocumented in this encounter Care Teams Slot Service Specialist Relationship Specialty Start Date End Date Merlyn Beauchamp [address] [place] [address] PCP - General Internal Medicine 03/25/18 documented as of this encounter
--- OUTSIDE RECORDS SUMMARY | 2024-04-07 06:36 | XMS_ITS | Encounter Summary ---
Author Organization [facility] Address [address] [place] [address] Care Team Providers Care Lead Java J2Ee Developer Name Role Phone Merlyn Beauchamp Primary Care Provider Encounter Details Date Type Department Care Team (Late st Contact Info) Description 02/02/2022 Telephone [facility] Heart Station [address] [place] [address] Elder Valdez MD [address] [place] [address] Social History Tobacco Use Types Packs/Day Years [...] on filedocumented in this encounter Care Teams Lead Java J2Ee Developer Relationship Specialty Start Date End Date Merlyn Beauchamp [address] [place] [address] PCP - General Internal Medicine 03/25/18 documented as of this encounter
--- OUTSIDE RECORDS SUMMARY | 2024-04-07 06:36 | XMS_ITS | Clinical Summary ---
Author Organization [facility] Address [address] [place] [address] Care Team Providers Care Viner Operator Name Role Phone Merlyn Beauchamp Primary Care Provider [phone] Allergies No known active allergies Medications multivitamin [...] size and function, and no evidence of uirb-zo-dbvdu shunting with IV in left arm Assessment [...] of paroxysmal atrial fibrillation Regarding anticoagulation, his [id number] score is 0. He does not take [...] purchase the AliveCor device Regarding anticoagulation, his [id number]-LJZn score is 0. He does not take [...] to let us know Regarding anticoagulation, his WOQ2NQ3-CEKb score is 0. He does not take [...] topic Insurance BIL TIERED POS Care Teams Viner Operator Relationship Specialty Start Date End Date Merlyn Beauchamp [address] [place], [place] [phone] PCP - General Internal Medicine 03/25/18
--- OUTSIDE RECORDS SUMMARY | 2024-04-07 06:36 | XMS_ITS | Referral Summary ---
Author Organization [facility] Address [address] [place] [address] Care Team Providers Care Commissary Manager Name Role Phone Merlyn Beauchamp Primary Care Provider [phone] Allergies No known active allergies Medications multivitamin [...] size and function, and no evidence of zimh-qv-tlmju shunting with IV in left arm Assessment [...] of paroxysmal atrial fibrillation Regarding anticoagulation, his UCZ2QI4-CCDl score is 0. He does not take [...] purchase the AliveCor device Regarding anticoagulation, his QCT0KF0-PQFz score is 0. He does not take [...] to let us know Regarding anticoagulation, his AKK7SI4-LCAc score is 0. He does not take [...] ABLATION A-FIB Paroxysmal atrial fibrillation (HCC) Insurance [facility] TIER POS Care Teams Commissary Manager Relationship Specialty Start Date End Date Merlyn Beauchamp [address] [place] [address] PCP - General Internal Medicine 03/25/18
[2024-04-07 09:58] LABS: MANUAL DIFF FLAG NO
[2024-04-07 10:07] LABS: Basophils Percent Auto 0.6 % (0-2); Eosinophils Absolute Auto 0.1 X10*3/uL (0.0-0.4); Eosinophils Percent Auto 1.5 % (0-4); Hematocrit 52.3 % (42.0-52.0); Imm Gran Abs Auto 0.01 X10*3/uL (0.00-0.03); Imm Gran Pct Auto 0.2 % (0.0-0.4); Lymphocytes Absolute Auto 1.9 X10*3/uL (1.2-4.9); Lymphocytes Percent Auto 29.2 % (20-40); Mean Corpuscular HGB Conc 32.5 g/dl (31.0-36.0); Mean Corpuscular Hemoglobin 29.3 pg (27.0-33.0); Mean Corpuscular Volume 90.2 fL (80.0-98.0); Monocytes Absolute Auto 0.6 X10*3/uL (0.1-1.2); Monocytes Percent Auto 8.9 % (2-11); Neutrophils Percent Auto 59.6 % (45-73); Platelet Count 333 X10*3/uL (160-400); Red Cell Distribution Width 15.3 % (11.0-16.0); White Blood Count 6.6 X10*3/uL (4.8-10.8)
[2024-04-07 10:14] LABS: Appearance Urine Clear; Color Urine Dark Yellow; Glucose Urine UA Negative (Negative); Leukocyte Esterase Urine Negative (Negative); Nitrite Urine Negative (Negative); PH 5.5 (5.0-9.0); Specific Gravity - Urine 1.025 (1.005-1.025); Urine Blood Negative (Negative); Urine Ketones Negative (Negative); Urine Protein Negative (Neg-Trace)
[2024-04-07 10:18] LABS: Bacteria Urine None Seen (None Seen); Hyaline Casts Urine 0-2 /LPF (0-2); RBC Urine 0-2 /HPF (0-2); Squamous Epithelial Cell Urine 0-2 /HPF (0-2); WBC Urine 0-5 /HPF (0-5)
[2024-04-07 10:46] LABS: Alanine Aminotransferase 69 U/L (0-40); Albumin Level 4.3 g/dL (3.5-5.0); Alkaline Phosphatase 51 U/L (39-117); Anion Gap 11 (12-20); Aspartate Amino Transferase 51 U/L (5-37); Bilirubin Total 0.8 mg/dL (0.0-1.0); Blood Urea Nitrogen 19 mg/dL (9-16); Calcium 9.3 mg/dL (8.4-10.2); Carbon Dioxide 28 mmol/L (22-29); Chloride 106 mmol/L (96-108); Cholesterol 237 mg/dL (<200); Estimated Glomerular Filt Rate > 60; Glucose Fasting 85 mg/dL (60-99); HDL Cholesterol 20 mg/dL (>40); LDL Cholesterol Calculated 200 mg/dL (<100); Sodium 140 mmol/L (135-145); Total Protein 7.8 g/dL (6.5-8.0); Triglycerides 88 mg/dL (<150)
[2024-04-07 10:50] LABS: TSH reflex Free T4 0.88 uIU/mL (0.32-4.0)
[2024-04-15 14:13] LABS: Testosterone, Free 816.4 pg/mL (35.0-155.0); Testosterone, Total 2387 ng/dL (250-1100)
== END 2024-04-07 06:35 | disposition home or self-care (01) ==
LOC: HO.HMGCLDS 06:34
PROVIDERS: PCP Internal Medicine; Visit Provider Internal Medicine
DX: Z00.00 Encounter for general adult medical examination without abnormal findings (principal); E78.5 Hyperlipidemia, unspecified; Z86.79 Personal history of other diseases of the circulatory system; R79.89 Other specified abnormal findings of blood chemistry
CPT/HCPCS: 36415; 80053; 80061; 81001; 84402; 84403; 84443; 85025

== ENCOUNTER 2024-04-08 12:03 | Outpatient (AMB) | payer OTHER, SELFPAY ==
[2024-04-08 12:21] VITALS: BP 120/72; PULSE 90; TEMP 36.6; O2SAT 97; BMI 28.9
--- NOTE | 2024-04-08 12:21 | MHC.PC.OV ---
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 Accompanied by: Self / Same As Patient Allergies No Known Allergies Allergy (Verified 04/08/24 12:21) Medication List - Last Reconciled 04/08/24 by Merlyn Beauchamp MD flecainide 100 mg PO DAILY metoprolol tartrate 25 mg PO BID PRN multivitamin 1 tab PO DAILY testosterone cypionate 100 mg (0.5 mL) IM Q2W Tobacco use date assessed: 04/08/24 Dental Screening Dental Screen Date: 04/08/24 Did you have a dental visit in the last 12 months?: Yes Did you have a dental problem in the last 6 months where you did not have access to dental care?: No Was dental information given to patient?: Patient has dentist HPI Annual PE HPI Details Pt presents for PE. PFSH Medical History Asthma Anxiety Vertigo Shoulder pain, left Chest pain Annual physical exam Surgical History No significant past surgical history Family History Father Hx of type 2 diabetes mellitus Mother Hx of breast cancer Hx of heat stroke Sister Multiple sclerosis Other Mental health disorder Substance use disorder Social History Household Members: Spouse and Children Housing: House Alcohol intake: never Patient Tobacco Use Status: Never used Tobacco e-Cigarette/Vaping Use: Never Used Second Hand Smoke Exposure: No service: No Current occupational status: employed Cognitive needs: No Hearing needs: No Vision needs: No Questionnaire PHQ-9 Over the last 2 weeks, how often have you been bothered by any of the following problems? 1. Little interest or pleasure in doing things: not at all 2. Feeling down, depressed, or hopeless: not at all 3. Trouble falling or staying asleep, or sleeping too much: not at all 4. Feeling tired or having little energy: not at all 5. Poor appetite or overeating: not at all 6. Feeling bad about yourself - or that you are a failure or have let yourself or your family down: not at all 7. Trouble concentrating on things, such as reading the newspaper or watching television: not at all 8. Moving or speaking so slowly that other people could have noticed. Or the opposite - being so fidgety or restless that you have been moving around a lot more than usual: not at all 9. Thoughts that you would be better off or of hurting yourself in some way: not at all Total score: 0 Depression Screening Interpretation: Negative Depression Screening Done: Yes 27943 - PHQ-9 Billing: Yes Source: Developed by Drs. Bobby Flores, Tomeka Joshua, Spike Mason and colleagues, with an educational zach from [employer]. Thrive Questionnaire Date Thrive assessed: 04/08/24 I am a: Patient What is your living situation today?: I have a steady place to live Within the past 12 months, did the food you bought not last and you didn't have the money to get more?: Never true Within the past 12 months, did you worry whether your food would run out before you got money to buy more?: Never true Do you have trouble paying for medicines?: No Do you have trouble getting transportation to medical appointments?: No Do you have trouble paying your heating and electricity bill?: No Do you have trouble taking care of your child, family member or friend?: No Do you have trouble with day-to-day activities such as bathing, preparing meals, shopping, managing finances, etc.?: No Are you currently unemployed and looking for a job?: No Are you interested in more education?: No Please select the resources that you would like help with: None Currently or been in a relationship where the following occur: No concerns reported THRIVE Score: 0 AUDIT C Alcohol Use Questionnaire (AUDIT-C) 1. How often do you have a drink containing alcohol?: Never 3. How often do you have six or more drinks on one occasion?: Never Total Score: 0 Score Reviewed/Action Taken: Yes FLACA-7 AMB Questionnaire FLACA-7 Date FLACA - 7 assessed: 04/08/24 Feeling nervous, anxious, or on edge: 0 = Not at all Not being able to stop or control worryin = Not at all Worrying too much about different things: 0 = Not at all Trouble relaxin = Not at all Being so restless that it is hard to sit still: 0 = Not at all Becoming easily annoyed or irritable: 0 = Not at all Feeling afraid as if something awful might happen: 0 = Not at all Total FLACA-7 score (0-4 normal; 5-9 mild; 10-14 moderate; 15-21 severe): 0 Source: Developed by Drs. Bobby Flores, Tomeka Joshua, Spike Mason and colleagues, with an educational zach from [employer]. FLACA-7 Assessment Billing FLACA-7 Assessment Tool: FLACA-7 Assessment 17111 Review of Systems Const All systems reviewed & are unremarkable except as noted in HPI and below Reports no additional complaints Eyes Reports no additional complaints ENT Reports no additional complaints Card Reports no additional complaints Resp Reports no additional complaints GI Reports no additional complaints Reports no additional complaints Physical exam (Primary Care) Vital Signs: Last Vital Signs Temp 97.8 F 04/08/24 12:21 Pulse 90 04/08/24 12:21 BP 120/72 04/08/24 12:21 Pulse Ox 97 04/08/24 12:21 BMI result Body Mass Index 28.9 Tobacco/Smoking Status: Tobacco use Status Tobacco use date assessed 04/08/24 04/08/24 12:22 Patient Tobacco Use Status Never used Tobacco 04/08/24 12:22 e-Cigarette/Vaping Use Never Used 04/08/24 12:22 PHQ-9: PHQ-9 Score PHQ-9: Total score 0 04/08/24 12:36 Depression Screening Interpretation: Negative Thrive Assessment: Date of Thrive Assessment Date Thrive assessed 04/08/24 04/08/24 12:22 Currently or been in a relationship where the following occur: No concerns reported Const General: no acute distress HENMT Head: Yes normal to inspection Ears: hearing grossly normal bilaterally Face and sinus: Yes normal facial exam Mouth: Normal oral and palatal mucosa present Eyes General: appearance normal, both eyes and all related structures Resp Effort & Inspection: normal respiratory effort Auscultation: clear to auscultation bilaterally Cardio Rhythm: regular rhythm Heart sounds: S1 normal heart sound present and S2 normal heart sound present GI Inspection: Yes normal to inspection Palpation (GI): Soft to palpation Percussion: Yes normal to percussion Auscultation: normal bowel sounds Coding Level of Care Code Est Pt Prev Care 40-64y(69701) Diagnoses Hyperlipemia E78.5 Annual physical exam Z00.00 Additional Codes FLACA-7 Assessment Billing - FLACA-7 Assessment Tool: FLACA-7 Assessment 06414 ([id number]) PHQ-9 - 58999 - PHQ-9 Billing: Yes ([id number]) Assessment & Plan Assessment & Plan (1) Hyperlipemia: Code(s): E78.5 - Hyperlipidemia, unspecified Category: Medical Plan: Low-cholesterol diet increasing fiber and food rich in [place] 3 acids intake discussed with the patient. Lipid profile will be rechecked in 3 months. Patient has been on testosterone replacement getting from online pharmacy. Testosterone level is still pending. (2) Annual physical exam: Code(s): Z00.00 - Encounter for general adult medical examination without abnormal findings Category: Medical Plan: Well-balanced diet regular physical activity discussed with the patient. Orders: Orders Comprehensive Cook Sta. Panel Fast 1 Year E78.5 - Hyperlipidemia, unspecified, Z00.00 - Encounter for general adult medical examination without abnormal findings UA w Microscopic 1 Year E78.5 - Hyperlipidemia, unspecified, Z00.00 - Encounter for general adult medical examination without abnormal findings LDL Cholesterol Direct 3 Months E78.5 - Hyperlipidemia, unspecified Lipid Panel 1 Year E78.5 - Hyperlipidemia, unspecified, Z00.00 - Encounter for general adult medical examination without abnormal findings Complete Blood Count Auto Diff 1 Year E78.5 - Hyperlipidemia, unspecified, Z00.00 - Encounter for general adult medical examination without abnormal findings LDL Cholesterol Direct 1 Year E78.5 - Hyperlipidemia, unspecified, Z00.00 - Encounter for general adult medical examination without abnormal findings Medications: New testosterone cypionate 100 mg (0.5 mL) IM Q2W 100 mL 0RF Discontinued testosterone Discontinued Reason: Doctor's Order 1 tube transdermal QAM 150 grams 3RF
== END 2024-04-08 13:13 | disposition home or self-care (01) ==
PROVIDERS: PCP Internal Medicine; Visit Provider Internal Medicine
DX: E78.5 Hyperlipidemia, unspecified (principal); Z00.00 Encounter for general adult medical examination without abnormal findings

== ENCOUNTER → 2024-04-08 12:03 | Outpatient (BNVA) | payer OTHER, SELFPAY | PROVIDERS: PCP Internal Medicine; Visit Provider Internal Medicine | DX: Z00.00 Encounter for general adult medical examination without abnormal findings (principal); E78.5 Hyperlipidemia, unspecified | CPT/HCPCS: 96127 ==